=== PATIENT | female | born 1970 | race Two or more races ===

== ENCOUNTER 2020-03-09 09:53 | Day surgery (SDC) | payer OTHER, SELFPAY ==
--- NOTE | 2020-03-08 10:25 | HO.ANESPROP2 ---
Documented by User: Tana Harrison 03/08/20 10:26 HPI - Anesthesia Eval Consult details Narrative: 50yo F for Colonoscopy [facility] Past Medical History Medical History Chronic back pain GERD (gastroesophageal reflux disease) Hypovitaminosis D Insomnia Pure hypercholesterolemia Family History Family History Father Asthma Mother No problems noted. Maternal Grandmother No problems noted. Maternal Grandfather No problems noted. Paternal Grandmother No problems noted. Paternal Grandfather No problems noted. Sister Diabetes Surgical History Surgical History History of surgery History of tubal ligation Social History Social History Smoking Status: Never smoker Use of substances other than those prescribed or required for medical reasons: No Advance Directives: No Advance Directives Information Provided: No Meds Allergies Allergy/AdvReac Type Severity Reaction Status Date / Time No Known Allergies Allergy Verified 03/03/20 13:28 Home Medications Medication Instructions Recorded Confirmed Type omeprazole 20 mg capsule,delayed 20 mg PO QAM 02/08/20 03/03/20 History release Exam Exam Date and Time: March 08, 2020 102 Assessment and Plan Assessment Anesthesia Assessment: Chart Reviewed Documented by User: Hal Andrade 03/09/20 10:48 [facility] Past Medical History Medical History Chronic back pain GERD (gastroesophageal reflux disease) Hypovitaminosis D Insomnia Pure hypercholesterolemia Family History Family History Father Asthma Mother No problems noted. Maternal Grandmother No problems noted. Maternal Grandfather No problems noted. Paternal Grandmother No problems noted. Paternal Grandfather No problems noted. Sister Diabetes Surgical History Surgical History History of surgery History of tubal ligation Social History Social History Smoking Status: Never smoker Use of substances other than those prescribed or required for medical reasons: No Advance Directives: No Advance Directives Information Provided: No Meds Allergies Allergy/AdvReac Type Severity Reaction Status Date / Time No Known Allergies Allergy Verified 03/03/20 13:28 Home Medications Medication Instructions Recorded Confirmed Type omeprazole 20 mg capsule,delayed 20 mg PO QAM 02/08/20 03/03/20 History release Exam Airway Mallampati Class: II TM Dist: >3cm Neck ROM: Full Heart: [id number] Lungs: cta b/l Assessment and Plan Assessment Anesthesia Assessment: Anesthesia Plan Discussed, PAT Visit and Chart Reviewed Final Anesthetic Review NPO: Yes ASA Class: II Final Preanesthetic Review: No Changes in Pt Med Stat, Meds/Allgs Chart Reviewed, Consent Obtained/Reviewed and Anes Risks/Benef Reviewed Patient Risk: Low Procedure Risk: Low Assessment/Block/Sedation in SS: Assess/Block/Sedation-SS Anesthetic Plan Anesthetic Plan: MAC: and Agree w/ Assess. and Plan Disposition: Standard PACU
[2020-03-09 10:29] VITALS: BP 115/71; PULSE 71; RESP 16; TEMP 36.5; O2SAT 97
[2020-03-09 10:33] VITALS: BMI 27.8
[2020-03-09] MEDS: Lactated Ringers 1,000 ML 100 ML IVCONT (10:46)
--- NOTE | 2020-03-09 10:50 | MHC.SHP ---
Pre-Procedural Eval Section B Chief Complaint: Screening Details of Present Illness: colon cancer screening--No changes since preop Relevant Family History (Specify if Yes): No Relevant Social History: None Present Medications: see Short Stay Collaborative assessment Medical History: No relevant PMH History of Previous Operations: No relevant previous surgery Allergies: Allergies Allergy/AdvReac Type Severity Reaction Status Date / Time No Known Allergies Allergy Verified 03/03/20 13:28 Review of Systems Sugical H&P ROS: Negative: Constitution, Cardiovascular, Respiratory, Gastrointestinal and Genitourinary Exam Surgical H&P Exam: Normal: HEENT, Normal: Heart, Normal: Lungs, Normal: Extremities and Normal: Abdomen Plan Diagnosis/Plan: Unchanged I have reviewed the history and physical and performed a pertinent physical examination on my patient. No changes have occurred unless specified.Yes
[2020-03-09 11:26] VITALS: BP 120/69; PULSE 67; RESP 16; TEMP 36.7; O2SAT 100
--- NOTE | 2020-03-09 11:32 | PM.PROC ---
Brief Operative Note Date of procedure: 03/09/20 Pre-op diagnosis: COLON CANCER SCREENING NON HIGH RISK Post-op diagnosis: other (NORMAL EXAM--EXCELLENT PREP) Procedure: COLONOSCOPY Anesthesia: MAC (Patrizia MARCELO CRNA) Surgeon: Delma Carey Estimated blood loss (mL): 0 Pathology: none sent Condition: stable
[2020-03-09 11:40] VITALS: BP 117/66; PULSE 55; RESP 16; TEMP 36.7; O2SAT 98
--- NOTE | 2020-03-09 12:14 | HO.POSTANES ---
Post Anesthesia Evaluation Post Anesthesia Evaluation Vital Signs: Vital Signs Temp Pulse Resp BP Pulse Ox 03/09/20 11:40 98.1 F 55 16 117/66 98 03/09/20 11:26 98.1 F 67 16 120/69 100 03/09/20 10:29 97.7 F 71 16 115/71 97 Anesthesia: Monitored Mental Status: Awake Pain Control: Satisfactory Nausea/Vomiting: None Hydration: Adequate Anesthesia-Related Issues: No Anes. Related Issues
--- NOTE | 2020-03-09 15:49 | OP_ITS ---
SURGEON: Delma Carey MD PREOPERATIVE DIAGNOSIS: The patient is seen for colon cancer screening, non-high risk. POSTOPERATIVE DIAGNOSIS: Normal exam. PROCEDURE PERFORMED: Colonoscopy. ESTIMATED BLOOD LOSS: No blood loss. COMPLICATIONS: No complications. ANESTHESIA: Monitored. ANESTHESIOLOGIST: Patrizia Chaves CRNA ASSISTANTS: No assistant real estate manager. SPECIMENS: No specimens removed. ROADS SUPERINTENDENT: Dr. Carey. CONDITION: Postprocedure, stable. FINDINGS: Digital rectal exam revealed sphincter tone to be adequate. Video colonoscope was introduced without difficulty. It was navigated into the rectosigmoid and sigmoid on up through descending, transverse, ascending colon down into the cecal cap. Appendiceal orifice was seen. Ileocecal valve was well seen. No mucosal abnormalities were appreciated. Prep was excellent. Slow rotational views on withdrawing the scope. No mucosal lesions were seen. Anorectal verge was clear. PLAN AND CURRENT RECOMMENDATIONS: Repeat asymptomatic screening in a non-high risk patient is 10 years. GRAFT OR IMPLANTS: No grafts or implants. Delma Carey MD MEN/MODL / [id number] [facility]
== END 2020-03-09 12:25 | disposition home or self-care (01) ==
PROVIDERS: PCP Internal Medicine; Visit Provider Internal Medicine Gastroenterology
PROC: 0DJD8ZZ Inspection of Lower Intestinal Tract, Via Natural or Artificial Opening Endoscopic (ICD-10-PCS; CPT 45378; principal; 2020-03-09 11:20)
DX: Z12.11 Encounter for screening for malignant neoplasm of colon (principal); K21.9 Gastro-esophageal reflux disease without esophagitis; E55.9 Vitamin D deficiency, unspecified; Z79.899 Other long term (current) drug therapy
CPT/HCPCS: 45378

== ENCOUNTER → 2020-03-23 14:25 | Outpatient (BNVA) | payer OTHER, SELFPAY | PROVIDERS: PCP Internal Medicine; Visit Provider Physician Assistant ==

== ENCOUNTER 2020-04-26 11:57 | Outpatient (REF) | payer OTHER, SELFPAY ==
[2020-04-26 13:02] LABS: Alanine Aminotransferase 17 U/L (0-31); Albumin Level 4.4 g/dL (3.5-5.0); Alkaline Phosphatase 90 U/L (39-117); Anion Gap 12 (12-20); Aspartate Amino Transferase 29 U/L (5-31); Bilirubin Total 0.3 mg/dL (0.0-1.0); Blood Urea Nitrogen 13 mg/dL (9-16); Calcium 9.1 mg/dL (8.4-10.2); Carbon Dioxide 27 mmol/L (22-29); Chloride 104 mmol/L (96-108); Cholesterol 233 mg/dL; Estimated Glomerular Filt Rate > 60; Glucose Fasting 103 mg/dL (60-99); HDL Cholesterol 36 mg/dL; LDL Cholesterol Calculated 128 mg/dl; Sodium 138 mmol/L (135-145); Total Protein 7.5 g/dL (6.5-8.0); Triglycerides 345 mg/dL
[2020-05-01 13:01] LABS: Vitamin D 25-OH, D2 54 ng/mL; Vitamin D 25-OH, D3 10 ng/mL; Vitamin D 25-OH, Total 64 ng/mL (30-100)
== END 2020-04-26 11:58 | disposition home or self-care (01) ==
LOC: HO.LAB 11:57
PROVIDERS: PCP Internal Medicine; Visit Provider Internal Medicine
DX: E78.00 Pure hypercholesterolemia, unspecified (principal); E55.9 Vitamin D deficiency, unspecified; E78.5 Hyperlipidemia, unspecified
CPT/HCPCS: 36415; 80053; 80061; 82306

== ENCOUNTER 2020-06-27 10:05 | Outpatient (REF) | payer OTHER, SELFPAY ==
--- NOTE | ~2020-06-27 | MM_ITS ---
EXAMINATION: MM SCREENING DIGITAL BREAST TOMOSYNTHESIS, BILATERAL CLINICAL INFORMATION: Screening. Asymptomatic. The lifetime risk of breast cancer based on the Tyrer-Cuzick Model is 7%. COMPARISON: Mammography: 02/19/2018, 02/12/2017, 02/07/2016 TECHNIQUE: Digital breast tomosynthesis is performed in both the craniocaudal and mediolateral oblique views along with computer-aided detection (CAD). Synthesized 2D images are generated from the tomosynthesis. FINDINGS: The breasts are heterogeneously dense, which may obscure small masses (ACR BI-RADS breast composition Category c). There are no significant masses, abnormal calcifications, or other abnormalities. There are some minor shifting fibroglandular densities related to positioning from year to year. No developing density. No significant changes. The skin contours are smooth. MM/MM tomosynthesis screening BI IMPRESSION: No mammographic evidence of malignancy. ASSESSMENT: BI-RADS 1: Negative RECOMMENDATION: Routine annual mammography screening. This patient's information was entered into a reminder system with a target due date for their next mammogram.
== END 2020-06-27 10:06 | disposition home or self-care (01) ==
LOC: HO.MAMMO 10:05
PROVIDERS: Visit Provider Internal Medicine
DX: Z12.31 Encounter for screening mammogram for malignant neoplasm of breast (principal)
CPT/HCPCS: 77063; 77067

== ENCOUNTER 2020-10-13 11:01 | Emergency (ER) | payer OTHER, SELFPAY ==
--- NOTE | ~2020-10-13 | CT_ITS ---
EXAMINATION: CT HEAD WITHOUT CONTRAST CLINICAL INFORMATION: Dizziness COMPARISON: None TECHNIQUE: Contiguous axial imaging was performed from the skull base to vertex without intravenous administration of contrast. This CT examination was performed using dose optimization techniques as appropriate, variously including the following: *Automated exposure control *Adjustment of mA and/or kV according to patient size (this includes techniques or standardized protocols for targeted exams where dose is matched to indication/reason for exam; i.e. extremities or head) *Use of iterative reconstruction technique DLP: 600 mGy-cm FINDINGS: There is no evidence of acute intracranial hemorrhage or territorial infarction. No abnormal mass effect or midline shift is seen. Ferro to white matter differentiation is well preserved. No extra-axial fluid collections are identified. The ventricles are normal in size. There is no abnormal attenuation within the brain parenchyma. The osseous structures and soft tissues are normal. The mastoid air cells and visualized portions of the paranasal sinuses are well aerated. CT/CT head/brain wo con IMPRESSION: Unremarkable exam.
[2020-10-13 11:41] VITALS: BP 104/41; PULSE 63; RESP 18; TEMP 37.1; O2SAT 98; BMI 27.6
--- NOTE | 2020-10-13 12:08 | ECG_ITS ---
Test Reason : ABDOMINAL PAIN Blood Pressure : / mmHG Vent. Rate : 066 BPM Atrial Rate : 066 BPM P-R Int : 146 ms QRS Dur : 076 ms QT Int : 420 ms P-R-T Axes : 055 061 024 degrees QTc Int : 440 ms Normal sinus rhythm Normal ECG When compared with ECG of 10-MAY-2017 19:41, No significant change was found Referred By: Joaquin Mares Electronically Signed By:LANEY HAWKINS
--- NOTE | 2020-10-13 12:09 | ED_ITS ---
HPI - General Adult General Chief complaint: Abdominal Pain Stated complaint: Weakness Time Seen by Provider: 10/13/20 13:52 Source: patient Mode of arrival: ambulatory Limitations: no limitations History of Present Illness HPI narrative: Patient presents to the ED for dizziness described as lightheadedness and abdominal cramps, cramps in extremities, and feeling tired. Patient was with her significant other cleaning the yardd and moving leaves with Rakes for over 2 hours under the hot sun this morning. . Patient states all the sudden started having symptoms while raking and came to the ED to be evaluated. Patient only had coffee for breakfast. Patient was not drinking water while perform activity. Patient denies any slurred speech, loss of vision, paralysis of extremities, trouble walking, facial droop, chest pain, shortness of breath, diarrhea, nausea, or emesis, or headache. Patient states no chest pain or shortness of breath. Patient denies any vomiting or diarrhea. Related Data Previous Rx's Medication Instructions Recorded ibuprofen 800 mg tablet 800 mg PO TID #90 tab 02/08/20 cholecalciferol (vitamin D3) 25 25 mcg PO DAILY 90 Days #90 cap 06/14/20 mcg (1,000 unit) capsule clotrimazole-betamethasone 1 1 appl TOPICAL BID 14 Days #15 g 06/14/20 %-0.05 % topical cream omeprazole 40 mg capsule,delayed 40 mg PO DAILY 90 Days #90 cap 06/14/20 release ergocalciferol (vitamin D2) 1,250 1,250 mcg PO QWEEK #4 cap 07/02/20 mcg (50,000 unit) capsule atorvastatin 10 mg tablet 10 mg PO BEDTIME #90 tab 09/06/20 escitalopram oxalate 5 mg tablet 5 mg PO DAILY 30 Days #30 tab 09/17/20 trazodone 50 mg tablet 50 mg PO BEDTIME PRN 90 Days #90 09/25/20 tab cephalexin 500 mg capsule 500 mg PO QID #28 cap 10/13/20 Allergies Allergy/AdvReac Type Severity Reaction Status Date / Time No Known Allergies Allergy Verified 10/13/20 11:41 Review of Systems Review of Systems: Yes all other systems are reviewed and are negative Constitutional: Constitutional: Reports as per HPI and Reports no additional constitutional complaints Eyes: Eyes: Reports as per HPI and Reports no additional eye complaints ENT: Reports system reviewed and no additional complaints, except as documented and Reports as per HPI Cardiovascular: Cardiovascular: Reports as per HPI and Reports no additional cardiovascular complaints Respiratory: Respiratory: Reports as per HPI and Reports no additional respiratory complaints Gastrointestinal: Gastrointestinal: Reports as per HPI, Reports no additional gastrointestinal complaints and Reports GI cramping Genitourinary: Genitourinary: Reports no additional female genitourinary complaints and Reports as per HPI Musculoskeletal: Musculoskeletal: Reports no additional musculoskeletal complaints and Reports as per HPI Integumentary/Breasts: Skin/Breast: Reports system reviewed and no additional complaints, except as docu and Reports as per HPI Neurologic: Reports system reviewed and no additional complaints, except as documented and Reports as per HPI Comments: Lightheadedness Psychiatric: Psychiatric: Reports no additional psychiatric complaints and Reports as per HPI [facility] Past Medical History Medical History Chronic back pain GERD (gastroesophageal reflux disease) Hypovitaminosis D Insomnia Mixed hyperlipidemia Pure hypercholesterolemia Surgical History History of surgery History of tubal ligation Family History Family History Father Asthma Mother No problems noted. Maternal Grandmother No problems noted. Maternal Grandfather No problems noted. Paternal Grandmother No problems noted. Paternal Grandfather No problems noted. Sister Diabetes Social History Social History (Updated 06/14/20 @ 17:18 by Daniella Abraham MD) Household Members: Spouse Alcohol intake: never Advance Directives: No Advance Directives Information Provided: No Patient : No Physical Exam Vital Signs: Vital Signs: Last Vital Signs Temp 98.7 F 10/13/20 11:41 Pulse 62 10/13/20 16:27 Resp 16 10/13/20 14:17 BP 99/51 L 10/13/20 16:27 Pulse Ox 98 10/13/20 14:17 Body Mass Index 27.6 Const: General: cooperative, healthy appearing, comfortable, no acute distress, well developed, alert, awake and Physically active Orien tation/consciousness: patient oriented x3 HENMT: Head: Yes normal to inspection, Yes No palpable skull fracture present, Yes normocephalic, Yes atraumatic and No abrasion Eyes: General: appearance normal, both eyes and all related structures Neck: Neck: Yes normal visual inspection, Yes full ROM, Yes no lymphadenopathy, Yes no meningeal signs, Yes trachea midline, Yes supple and No tender Chest: Chest palpation & inspection: normal inspection of the chest and normal palpation of entire chest wall Resp: Effort & Inspection: normal respiratory effort and able to speak in complete sentences Auscultation: clear to auscultation bilaterally Cardio: Jugular venous distension: no JVD Heart sounds: S1 normal heart sound present and S2 normal heart sound present GI: Inspection: Yes normal to inspection and No abdominal wall ecchymosis Palpation (GI): Soft to palpation, not firm, nontender, no guarding and not rigid : General: No CVA tenderness and Yes no CVA tenderness Back/Spine/Pelvis: Back: no CVA tenderness, No CVA tenderness and No back tenderness Skin: General skin exam: no rashes or lesions noted and elasticity normal Neuro: Other: Negative facial droop. Negative slurred speech. All extremities equal strength 5+. Negative pronator drift. [id number] rapid hand movement intact. Negative Romberg General: patient oriented x3, no meningeal signs and CN's II-XI intact bilaterally Cranial nerves: Yes CN's II-XII intact bilaterally Extrem: General: Yes normal to inspection and Yes full ROM Psych: Appearance: grossly normal, well kempt and not disheveled NIH Stroke Scale Level of Consciousness: Alert Level of Consciousness Questions: Answers both questions correctly Level of Consciousness Commands: Performs both tasks correctly Best Gaze: Normal Visual: No visual loss Facial Palsy: Normal Motor Arm (Right): No drift Motor Arm (Left): No drift Motor Leg (Right): No drift Motor Leg (Left): No drift Limb Ataxia: Absent Sensory: Normal Best Language: No aphasia Dysarthia: Normal Extinction and Inattention: No abnormality Score: 0 Course Course Course Narrative: History physical exam indicates his exertion but with a cardiac evaluation. NIH score 0 unlikely stroke but was sent for head CT CPK an d troponin ordered. Reevaluation(s) Reevaluation #1: Patient initial troponin came back at 8.4. CT scan normal. Negative for neuro deficits. EKG negative STEMI. CPK only 300. Electrolytes are at baseline. Patient receiving IV fluids. Time: 12:19 Reevaluation #2: D-dimer was sent due to patient stating earlier while in the sun she felt dizzy, cramping in extremities, bilateral upper quadrants and felt like she is about to pass out in the sun. D-dimer negative. Wells score is 0. Patient states she feels better after IV fluids. and no longer have any cramping in the abdomen or cramping of extremities. Diagnosis heat exaustion. Exam benign, soft, and nontender on palpation. UA shows UTI. Will be discharged with antibiotics. We will do orthostatics. Second troponin did not increased by 50%. Time: 16:19 Medical Decision Making MDM Narrative Medical decision making narrative: UTI. Heat exhaustion Lab Data Result diagrams: 10/13/20 12:19 10/13/20 12:19 Labs: Lab Results 10/13/20 10/13/20 10/13/20 Range/Units 12:19 12:19 12:19 WBC 11.2 H (4.8-10.8) X10*3/uL RBC 4.56 (4.20-5.50) X10*6/uL Hgb 12.7 (12.0-16.0) g/dl Hct 40.1 (37-47) % MCV 87.9 (80-98) fL MCH 27.9 (27.0-33.0) pg MCHC 31.7 (31.0-35.0) g/dl RDW 13.7 (11.0-16.0) % Plt Count 410 H (160-400) X10*3/uL MPV 9.6 (9.4-12.3) fL Immature Gran % (Auto) 0.4 (0.0-0.4) % Neut % (Auto) 58.0 (45-73) % Lymph % (Auto) 33.6 (20-40) % [place] % (Auto) 6.6 (2-11) % Eos % (Auto) 0.9 (0-4) % Baso % (Auto) 0.5 (0-2) % Lymph # (Auto) 3.8 (1.2-4.9) X10*3/uL [place] # (Auto) 0.7 (0.1-1.2) X10*3/uL Eos # (Auto) 0.1 (0.0-0.4) X10*3/uL Baso # (Auto) 0.1 (0.0-0.2) X10*3/uL Abs Immat Gran (auto) 0.04 H (0.00-0.03) X10*3/uL Absolute Neuts (auto) 6.5 (2.0-8.3) X10*3/uL Absolute Nucleated RBC 0.000 (0.0-0.012) X10*3/uL Nucleated RBC % (auto) 0.0 (0.0-0.2) /100WBC PT 11.5 (9.9-13.0) SEC INR 1.0 (0.9-1.1) APTT 36.4 (24.1-38.0) SEC D-Dimer < 200 NG/ML Sodium 139 (135-145) mmol/L Potassium 4.1 (3.3-5.1) mmol/L Chloride 103 (96-108) mmol/L Carbon Dioxide 28 (22-29) mmol/L Anion Gap 12 (12-20) BUN 18 H (9-16) mg/dL Creatinine 1.20 (0.5-1.4) mg/dL Estim Creat Clear Calc 52.3 Estimated GFR 47 Random Glucose 85 (60-115) mg/dL Calcium 10.3 H D (8.4-10.2) mg/dL Magnesium 2.5 (1.6-2.6) mg/dL Total Bilirubin 0.5 (0.0-1.0) mg/dL Direct Bilirubin (0.0-0.5) mg/dL AST 44 H D (5-31) U/L ALT 24 (0-31) U/L Alkaline Phosphatase 102 (39-117) U/L Total Creatine Kinase 319 H (26-140) U/L Troponin I High Sens (<3.5-17.0) ng/L Total Protein 8.0 (6.5-8.0) g/dL Albumin 4.7 (3.5-5.0) g/dL Lipase (8-78) U/L Urine Color Urine Appearance Urine pH (5.0-8.0) Ur Specific [place] (1.005-1.025) Urine Protein (NEG-TRACE) MG/DL Urine Glucose (UA) (NEG) MG/DL Urine Ketones (NEG) MG/DL Urine Blood (NEG) Urine Nitrite (NEG) Ur Leukocyte Esterase (NEG) Urine RBC (0) /HPF Urine WBC (0-4) /HPF Ur Squamous Epith Cells /LPF Urine Bacteria /LPF Urine Mucus /LPF Urine Test (NEGATIVE) 10/13/20 10/13/20 10/13/20 Range/Units 12:19 12:19 12:21 WBC (4.8-10.8) X10*3/uL RBC (4.20-5.50) X10*6/uL Hgb (12.0-16.0) g/dl Hct (37-47) % MCV (80-98) fL MCH (27.0-33.0) pg MCHC (31.0-35.0) g/dl RDW (11.0-16.0) % Plt Count (160-400) X10*3/uL MPV (9.4-12.3) fL Immature Gran % (Auto) (0.0-0.4) % Neut % (Auto) (45-73) % Lymph % (Auto) (20-40) % [place] % (Auto) (2-11) % Eos % (Auto) (0-4) % Baso % (Auto) (0-2) % Lymph # (Auto) (1.2-4.9) X10*3/uL [place] # (Auto) (0.1-1.2) X10*3/uL Eos # (Auto) (0.0-0.4) X10*3/uL Baso # (Auto) (0.0-0.2) X10*3/uL Abs Immat Gran (auto) (0.00-0.03) X10*3/uL Absolute Neuts (auto) (2.0-8.3) X10*3/uL Absolute Nucleated RBC (0.0-0.012) X10*3/uL Nucleated RBC % (auto) (0.0-0.2) /100WBC PT (9.9-13.0) SEC INR (0.9-1.1) APTT (24.1-38.0) SEC D-Dimer NG/ML Sodium (135-145) mmol/L Potassium (3.3-5.1) mmol/L Chloride (96-108) mmol/L Carbon Dioxide (22-29) mmol/L Anion Gap (12-20) BUN (9-16) mg/dL Creatinine (0.5-1.4) mg/dL Estim Creat Clear Calc Estimated GFR Random Glucose (60-115) mg/dL Calcium (8.4-10.2) mg/dL Magnesium (1.6-2.6) mg/dL Total Bilirubin 0.5 (0.0-1.0) mg/dL Direct Bilirubin 0.2 (0.0-0.5) mg/dL AST 44 H (5-31) U/L ALT 24 (0-31) U/L Alkaline Phosphatase 102 (39-117) U/L Total Creatine Kinase (26-140) U/L Troponin I High Sens 8.4 (<3.5-17.0) ng/L Total Protein 8.0 (6.5-8.0) g/dL Albumin 4.7 (3.5-5.0) g/dL Lipase 21 (8-78) U/L Urine Color YELLOW Urine Appearance HAZY Urine pH 5.5 (5.0-8.0) Ur Specific [place] 1.025 (1.005-1.025) Urine Protein TRACE (NEG-TRACE) MG/DL Urine Glucose (UA) NEG (NEG) MG/DL Urine Ketones 5 (NEG) MG/DL Urine Blood TRACE (NEG) Urine Nitrite NEG (NEG) Ur Leukocyte Esterase 2+ H (NEG) Urine RBC 0-2 (0) /HPF Urine WBC 15-29 H (0-4) /HPF Ur Squamous Epith Cells 3+ /LPF Urine Bacteria 1+ /LPF Urine Mucus 1+ /LPF Urine Test (NEGATIVE) 10/13/20 10/13/20 Range/Units 12:21 15:26 WBC (4.8-10.8) X10*3/uL RBC (4.20-5.50) X10*6/uL Hgb (12.0-16.0) g/dl Hct (37-47) % MCV (80-98) fL MCH (27.0-33.0) pg MCHC (31.0-35.0) g/dl RDW (11.0-16.0) % Plt Count (160-400) X10*3/uL MPV (9.4-12.3) fL Immature Gran % (Auto) (0.0-0.4) % Neut % (Auto) (45-73) % Lymph % (Auto) (20-40) % [place] % (Auto) (2-11) % Eos % (Auto) (0-4) % Baso % (Auto) (0-2) % Lymph # (Auto) (1.2-4.9) X10*3/uL [place] # (Auto) (0.1-1.2) X10*3/uL Eos # (Auto) (0.0-0.4) X10*3/uL Baso # (Auto) (0.0-0.2) X10*3/uL Abs Immat Gran (auto) (0.00-0.03) X10*3/uL Absolute Neuts (auto) (2.0-8.3) X10*3/uL Absolute Nucleated RBC (0.0-0.012) X10*3/uL Nucleated RBC % (auto) (0.0-0.2) /100WBC PT (9.9-13.0) SEC INR (0.9-1.1) APTT (24.1-38.0) SEC D-Dimer NG/ML Sodium (135-145) mmol/L Potassium (3.3-5.1) mmol/L Chloride (96-108) mmol/L Carbon Dioxide (22-29) mmol/L Anion Gap (12-20) BUN (9-16) mg/dL Creatinine (0.5-1.4) mg/dL Estim Creat Clear Calc Estimated GFR Random Glucose (60-115) mg/dL Calcium (8.4-10.2) mg/dL Magnesium (1.6-2.6) mg/dL Total Bilirubin (0.0-1.0) mg/dL Direct Bilirubin (0.0-0.5) mg/dL AST (5-31) U/L ALT (0-31) U/L Alkaline Phosphatase (39-117) U/L Total Creatine Kinase (26-140) U/L Troponin I High Sens 7.4 (<3.5-17.0) ng/L Total Protein (6.5-8.0) g/dL Albumin (3.5-5.0) g/dL Lipase (8-78) U/L Urine Color Urine Appearance Urine pH (5.0-8.0) Ur Specific [place] (1.005-1.025) Urine Protein (NEG-TRACE) MG/DL Urine Glucose (UA) (NEG) MG/DL Urine Ketones (NEG) MG/DL Urine Blood (NEG) Urine Nitrite (NEG) Ur Leukocyte Esterase (NEG) Urine RBC (0) /HPF Urine WBC (0-4) /HPF Ur Squamous Epith Cells /LPF Urine Bacteria /LPF Urine Mucus /LPF Urine Test NEGATIVE (NEGATIVE) ECG Data Interpretation: Normal sinus rhythm. Normal EKG. Ventricular rate 66. CT interval 146. QRS is 76. QTC 440. Negative STEMI Discharge Plan Discharge Clinical Impression: Heat exhaustion Patient Disposition: Home, Self-Care Instructions: Urinary Tract Infection in Women (ED), Heat Exhaustion (ED) Additional Instructions: La historia y el examen f?sico indican agotamiento por calor. Thurman electrocardiograma, an?lisis de rubens y tomograf?a computarizada de la mary resultaron normales seg?n la orina que muestra la posibilidad de mindi infecci?n del tracto urinario. Ser? dado de christen con antibi?ticos. Regrese al servicio de urgencias de inmediato si tiene dificultad para hablar, declive facial, p?rdida de la visi?n, par?lisis de las extremidades, dolor en el pecho, dificultad para respirar, dolor abdominal, diarrea, n?useas, v?mitos o cualquier otro s?ntoma relacionado. Prescriptions: New cephalexin 500 mg capsule 500 mg PO QID Qty: 28 RF: 0 No Action ergocalciferol (vitamin D2) 1,250 mcg (50,000 unit) capsule 1,250 mcg PO QWEEK Qty: 4 RF: 4 atorvastatin 10 mg tablet 10 mg PO BEDTIME Qty: 90 RF: 1 escitalopram oxalate 5 mg tablet 5 mg PO DAILY 30 Days Qty: 30 RF: 6 trazodone 50 mg tablet 50 mg PO BEDTIME PRN (Reason: insomnia) 90 Days Qty: 90 RF: 3 omeprazole 40 mg capsule,delayed release(DR/EC) 40 mg PO DAILY 90 Days Qty: 90 RF: 3 cholecalciferol (vitamin D3) 25 mcg (1,000 unit) capsule 25 mcg PO DAILY 90 Days Qty: 90 RF: 3 clotrimazole-betamethasone 1-0.05 % cream 1 appl topical BID 14 Days Qty: 15 RF: 1 ibuprofen 800 mg tablet 800 mg PO TID Qty: 90 RF: 3 Referrals: Daniella Leo MD [Primary Care Provider] - 2 days (Heat exhaustion. UTI) Interventions: ED Discharge Assessment Last Done: 10/13/20 16:45 Discharge Date/Time: 10/13/20 16:45 Print Language: Citizen Of [place]
[2020-10-13] MEDS: 0.9 % Sodium Chloride 1,000 ML 999 ML IV ×2 (12:20)
[2020-10-13 12:25] VITALS: BP 98/59; PULSE 50; RESP 16; O2SAT 98
[2020-10-13 12:31] LABS: MANUAL DIFF FLAG NO
[2020-10-13 12:32] LABS: Basophils Absolute Auto 0.1 X10*3/uL (0.0-0.2); Basophils Percent Auto 0.5 % (0-2); Eosinophils Absolute Auto 0.1 X10*3/uL (0.0-0.4); Eosinophils Percent Auto 0.9 % (0-4); Hematocrit 40.1 % (37-47); Hemoglobin 12.7 g/dl (12.0-16.0); Imm Gran Abs Auto 0.04 X10*3/uL (0.00-0.03); Imm Gran Pct Auto 0.4 % (0.0-0.4); Lymphocytes Absolute Auto 3.8 X10*3/uL (1.2-4.9); Lymphocytes Percent Auto 33.6 % (20-40); Mean Corpuscular HGB Conc 31.7 g/dl (31.0-35.0); Mean Corpuscular Hemoglobin 27.9 pg (27.0-33.0); Mean Corpuscular Volume 87.9 fL (80-98); Mean Platelet Volume 9.6 fL (9.4-12.3); Monocytes Absolute Auto 0.7 X10*3/uL (0.1-1.2); Monocytes Percent Auto 6.6 % (2-11); Neutrophils Absolute Auto 6.5 X10*3/uL (2.0-8.3); Platelet Count 410 X10*3/uL (160-400); Red Blood Count 4.56 X10*6/uL (4.20-5.50); Red Cell Distribution Width 13.7 % (11.0-16.0); White Blood Count 11.2 X10*3/uL (4.8-10.8)
[2020-10-13 12:39] LABS: Appearance Urine HAZY; Color Urine YELLOW; Glucose Urine UA NEG (NEG); Leukocyte Esterase Urine 2+ (NEG); Nitrite Urine NEG (NEG); PH 5.5 (5.0-8.0); Specific Gravity - Urine 1.025 (1.005-1.025); UACC Culture Trigger YES; Urine Blood TRACE (NEG); Urine Ketones 5 MG/DL (NEG); Urine Protein TRACE MG/DL (NEG-TRACE)
[2020-10-13 12:39] LABS: Prothrombin Time 11.5 SEC (9.9-13.0)
[2020-10-13 12:42] LABS: Partial Thromboplastin Time 36.4 SEC (24.1-38.0)
[2020-10-13 12:58] LABS: Alanine Aminotransferase 24 U/L (0-31); Albumin Level 4.7 g/dL (3.5-5.0); Alkaline Phosphatase 102 U/L (39-117); Aspartate Amino Transferase 44 U/L (5-31); Bilirubin Direct 0.2 mg/dL (0.0-0.5); Bilirubin Total 0.5 mg/dL (0.0-1.0); Lipase 21 U/L (8-78)
[2020-10-13 12:59] LABS: Alanine Aminotransferase 24 U/L (0-31); Albumin Level 4.7 g/dL (3.5-5.0); Alkaline Phosphatase 102 U/L (39-117); Anion Gap 12 (12-20); Aspartate Amino Transferase 44 U/L (5-31); Bilirubin Total 0.5 mg/dL (0.0-1.0); Blood Urea Nitrogen 18 mg/dL (9-16); Calcium 10.3 mg/dL (8.4-10.2); Carbon Dioxide 28 mmol/L (22-29); Chloride 103 mmol/L (96-108); Creatinine Clr Calc Pharmacy 52.3; Estimated Glomerular Filt Rate 47; Glucose Random 85 mg/dL (60-115); Magnesium 2.5 mg/dL (1.6-2.6); Potassium 4.1 mmol/L (3.3-5.1); Sodium 139 mmol/L (135-145)
[2020-10-13 13:04] LABS: Bacteria Urine 1+ /LPF; Squamous Epithelial Cell Urine 3+ /LPF
[2020-10-13 13:05] LABS: Troponin-I High Sensitivity 8.4 ng/L (<3.5-17.0)
[2020-10-13 13:05] LABS: Mucus Urine 1+ /LPF
[2020-10-13 13:06] LABS: RBC Urine 0-2 /HPF (0)
[2020-10-13 14:16] LABS: Urine Pregnancy NEGATIVE (NEGATIVE)
[2020-10-13 14:17] VITALS: BP 107/55; PULSE 59; RESP 16; O2SAT 98
[2020-10-13 14:17] LABS: UPreg QC Valid YES
[2020-10-13 15:13] LABS: D Dimer < 200 NG/ML
[2020-10-13 15:55] LABS: Troponin-I High Sensitivity 7.4 ng/L (<3.5-17.0)
[2020-10-13 16:25] VITALS: BP 94/53; PULSE 50
[2020-10-13 16:26] VITALS: BP 88/52; PULSE 61
[2020-10-13 16:27] VITALS: BP 99/51; PULSE 62
--- NOTE | 2020-10-13 16:28 | ECG_ITS ---
Test Reason : ABDOMINAL PAIN Blood Pressure : / mmHG Vent. Rate : 066 BPM Atrial Rate : 066 BPM P-R Int : 146 ms QRS Dur : 076 ms QT Int : 420 ms P-R-T Axes : 055 061 024 degrees QTc Int : 440 ms Normal sinus rhythm Normal ECG Referred By: Joaquin Mares Electronically Signed By:
== END 2020-10-13 16:45 | disposition home or self-care (01) ==
PROVIDERS: Physician Assistant; Emergency Provider Emergency Medicine; PCP Internal Medicine
DX: T67.5XXA Heat exhaustion, unspecified, initial encounter (principal); X58.XXXA Exposure to other specified factors, initial encounter; Y93.H1 Activity, digging, shoveling and raking; Y92.017 Garden or yard in single-family (private) house as the place of occurrence of the external cause; Y99.9 Unspecified external cause status
CPT/HCPCS: 36415; 70450; 80053; 80076; 81001; 81025; 82248; 82550; 83690; 83735; 84484; 85025; 85379; 85610; 85730; 87086; 93005; 96360; 99284

== ENCOUNTER 2021-06-01 10:59 | Outpatient (REF) | payer OTHER, SELFPAY ==
[2021-06-01 12:11] LABS: Alanine Aminotransferase 18 U/L (0-31); Albumin Level 4.2 g/dL (3.5-5.0); Alkaline Phosphatase 112 U/L (39-117); Anion Gap 10 (12-20); Aspartate Amino Transferase 35 U/L (5-31); Bilirubin Total 0.7 mg/dL (0.0-1.0); Blood Urea Nitrogen 13 mg/dL (9-16); Calcium 9.9 mg/dL (8.4-10.2); Carbon Dioxide 28 mmol/L (22-29); Chloride 107 mmol/L (96-108); Cholesterol 142 mg/dL; Estimated Glomerular Filt Rate > 60; Glucose Fasting 104 mg/dL (60-99); HDL Cholesterol 44 mg/dL; LDL Cholesterol Calculated 76 mg/dl; Potassium 5.4 mmol/L (3.3-5.1); Sodium 140 mmol/L (135-145); Total Protein 7.4 g/dL (6.5-8.0); Triglycerides 110 mg/dL
== END 2021-06-01 11:00 | disposition home or self-care (01) ==
LOC: HO.LAB 10:59
PROVIDERS: PCP Internal Medicine; Visit Provider Internal Medicine
DX: E78.2 Mixed hyperlipidemia (principal)
CPT/HCPCS: 36415; 80053; 80061

== ENCOUNTER 2021-06-09 08:55 | Outpatient (REF) | payer OTHER, SELFPAY ==
[2021-06-09 09:47] LABS: Alanine Aminotransferase 13 U/L (0-31); Alkaline Phosphatase 104 U/L (39-117); Anion Gap 10 (12-20); Aspartate Amino Transferase 28 U/L (5-31); Bilirubin Total 0.6 mg/dL (0.0-1.0); Blood Urea Nitrogen 11 mg/dL (9-16); Calcium 9.4 mg/dL (8.4-10.2); Carbon Dioxide 27 mmol/L (22-29); Chloride 105 mmol/L (96-108); Estimated Glomerular Filt Rate > 60; Glucose Random 175 mg/dL (60-115); Potassium 4.8 mmol/L (3.3-5.1); Sodium 137 mmol/L (135-145); Total Protein 6.9 g/dL (6.5-8.0)
== END 2021-06-09 08:56 | disposition home or self-care (01) ==
LOC: HO.LAB 08:55
PROVIDERS: PCP Internal Medicine; Visit Provider Internal Medicine
DX: E87.5 Hyperkalemia (principal)
CPT/HCPCS: 36415; 80053

== ENCOUNTER → 2021-06-13 15:22 | Outpatient (REF) | payer OTHER, SELFPAY ==
--- NOTE | 2021-06-13 15:36 | ECG_ITS ---
Test Reason : HYPERKALEMIA Blood Pressure : / mmHG Vent. Rate : 075 BPM Atrial Rate : 075 BPM P-R Int : 174 ms QRS Dur : 076 ms QT Int : 388 ms P-R-T Axes : 074 049 032 degrees QTc Int : 433 ms Normal sinus rhythm Normal ECG When compared with ECG of 13-OCT-2020 13:48, No significant change was found Referred By: Daniella Abraham Electronically Signed By:NELL HESTER
== END ==
LOC: HO.CARD 15:22
PROVIDERS: PCP Internal Medicine; Visit Provider Internal Medicine
DX: E87.5 Hyperkalemia (principal)
CPT/HCPCS: 93005

== ENCOUNTER 2022-03-13 07:20 | Outpatient (REF) | payer OTHER, SELFPAY ==
--- NOTE | ~2022-03-13 | XR_ITS ---
EXAMINATION: XR FOREARM, LEFT CLINICAL INFORMATION: Pain in the left forearm. COMPARISON: No similar priors. TECHNIQUE: AP and lateral views of the left forearm were obtained. FINDINGS: The bones and soft tissues are normal. No fracture. Imaged portions of the elbow and wrist are unremarkable. XR/XR forearm LT 2V IMPRESSION: Normal left forearm.
[2022-03-13 09:14] LABS: Alanine Aminotransferase 14 U/L (0-31); Albumin Level 4.3 g/dL (3.5-5.0); Alkaline Phosphatase 115 U/L (39-117); Anion Gap 13 (12-20); Aspartate Amino Transferase 35 U/L (5-31); Bilirubin Total 0.5 mg/dL (0.0-1.0); Blood Urea Nitrogen 11 mg/dL (9-16); Calcium 9.6 mg/dL (8.4-10.2); Carbon Dioxide 29 mmol/L (22-29); Chloride 104 mmol/L (96-108); Cholesterol 197 mg/dL; Estimated Glomerular Filt Rate > 60; Glucose Fasting 107 mg/dL (60-99); HDL Cholesterol 45 mg/dL; LDL Cholesterol Calculated 125 mg/dl; Sodium 141 mmol/L (135-145); Total Protein 7.5 g/dL (6.5-8.0); Triglycerides 138 mg/dL
[2022-03-13 09:35] LABS: Vitamin D 25-OH Total 25.6 ng/mL (>30)
== END 2022-03-13 07:21 | disposition home or self-care (01) ==
LOC: HO.XRAY 07:20
PROVIDERS: PCP Internal Medicine; Visit Provider Internal Medicine
DX: E55.9 Vitamin D deficiency, unspecified (principal); G89.29 Other chronic pain; E78.5 Hyperlipidemia, unspecified; M79.632 Pain in left forearm; M54.50 Low back pain, unspecified
CPT/HCPCS: 36415; 73090; 80053; 80061; 82306

== ENCOUNTER 2023-03-27 13:07 | Outpatient (REF) | payer OTHER, SELFPAY ==
[2023-03-31 20:09] LABS: HPV mRNA E6/E7 rflx Not Detected (Not Detected)
== END 2023-03-27 13:08 | disposition home or self-care (01) ==
LOC: HO.LNP 13:07
PROVIDERS: Visit Provider Advanced Practice Midwife
DX: Z01.419 Encounter for gynecological examination (general) (routine) without abnormal findings (principal); Z11.51 Encounter for screening for human papillomavirus (HPV); N89.8 Other specified noninflammatory disorders of vagina; N39.46 Mixed incontinence
CPT/HCPCS: 87624; 88142; 99386

== ENCOUNTER 2023-03-27 13:07 | Outpatient (AMB) | payer OTHER, SELFPAY ==
[2023-03-27 13:19] VITALS: BP 124/82; BMI 26.9
--- NOTE | 2023-03-27 13:19 | MHC.OFFVIS ---
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 She is doing well with no concerns: LMP >2 years ago. She reports hot flashes are bothersome. Attempting to eat a healthy diet with calcium and vitamin D and stays active with exercise. Currently not sexually active for 3 years. Denies any vaginal dryness or irritation. STI testing offered; she accepts. Last pap smear; >5yrs. Last mammogram; 2020. Colonoscopy is UTD. Denies any family history of breast, ovarian or colon cancer. [facility] Medical History Left forearm pain Encounter for physical examination Hyperkalemia EDWAR (generalized anxiety disorder) Mild recurrent major depression Screen for STD (sexually transmitted disease) Mixed hyperlipidemia Chronic back pain GERD (gastroesophageal reflux disease) Insomnia Pure hypercholesterolemia Hypovitaminosis D Surgical History History of surgery History of tubal ligation Family History Father Asthma Mother No problems noted. Maternal Grandmother No problems noted. Maternal Grandfather No problems noted. Paternal Grandmother No problems noted. Paternal Grandfather No problems noted. Sister Diabetes Social History Household Members: Spouse Housing: Apartment Alcohol intake: never Patient Tobacco Use Status: Never used Tobacco e-Cigarette/Vaping Use: Never Used Second Hand Smoke Exposure: No service: No Current occupational status: employed Current occupational exposures/hazards: No Cognitive needs: No Hearing needs: No Vision needs: No Female Reproductive History Menstrual Age of Menarche: 12 control method: permanent sterilization Total pregnancies: 3 Full term: 3 Number of Living Children: 3 Date of last pap smear: 04/21/17 (negative) Date of Mammogram: 06/27/20 Review of Systems Const All systems reviewed & are unremarkable except as noted in HPI and below Reports as per HPI Eyes Reports no additional complaints ENT Reports no additional complaints Card Reports no additional complaints Resp Reports no additional complaints GI Reports as per HPI and Reports no additional complaints Reports as per HPI Musc Reports no additional complaints Skin/Breast Reports as per HPI Neuro Reports no additional complaints Psych Reports no additional complaints Endo Reports no additional complaints Edmund/Lymph Reports no additional complaints Aller/Immun Reports no additional complaints Physical Exam Vital Signs: Last Vital Signs BP 124/82 03/27/23 13:19 BMI result Body Mass Index 26.9 Const General: cooperative, healthy appearing, no acute distress, well developed and alert Orientation/consciousness: patient oriented x3 HEENT Head: Yes normal to inspection Eyes General: appearance normal, both eyes and all related structures Neck Neck: Yes normal visual inspection Thyroid: Thyroid normal Chest Chest palpation & inspection: normal inspection of the chest and other (no puckering, dimpling, peau de orange, retraction, discharge, masses) Breast/axilla inspection: normal inspection of the breasts Breast/axilla palpation: normal palpation of the breasts Resp Effort & Inspection: normal respiratory effort GI Inspection: Yes normal to inspection Palpation (GI): Soft to palpation Rectal Exam - Female: deferred General: Yes bladder normal to palpation External Female Exam: normal external appearance and normal appearance of the urethra Speculum Exam - Vagina: normal appearance of the vagina, normal palpation, abnormal vaginal discharge (White and clumpy) and vagina atrophic Speculum Exam - Cervix: normal appearance of the cervix and normal palpation Bimanual exam- vagina & uterus: normal bimanual exam, normal palpation, uterine size normal, bladder normal to palpation, normal palpation and non-tender Bimanual Exam- Adnexa, other: no masses Skin General skin exam: no rashes or lesions noted Rashes: no rashes Neuro General: patient oriented x3 Cognition (Neuro): normal cognition Extrem General: Yes normal to inspection Psych Attitude: cooperative Thought process: Normal thought process present Assessment & Plan Assessment & Plan (1) Encounter for well woman exam with routine gynecological exam: Code(s): Z01.419 - Encounter for gynecological examination (general) (routine) without abnormal findings (2) Urge and stress incontinence: Code(s): N39.46 - Mixed incontinence (3) Vaginal discharge: Code(s): N89.8 - Other specified noninflammatory disorders of vagina Plan Discussed: Current recommendations for pap smears per ASCCP guidelines. Breast awareness, periodic self breast exams and yearly mammogram. Maintain a healthy lifestyle, well balanced diet including Calcium 1,200 mg and Vitamin D 600 IU daily, and routine exercise. Use of condoms for STI if indicated. Contact the office with any postmenopausal bleeding. Complete the mammogram and then schedule a consult for hot flashes. Referral to Urology. Patient verbalizes understanding and agrees to the plan of care. She was given opportunity to ask questions and all questions were answered to the best of my ability. 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 This note is constructed using voice recognition software. While every effort has been made to ensure accuracy, urban renewal manager errors may have been included. Orders: Orders MM tomosynthesis screening BI Today Z12.31 - Encounter for screening mammogram for malignant neoplasm of breast HIV Ab/Ag Today Z20.2 - Contact with and (suspected) exposure to infections with a predominantly sexual mode of transmission Pap Smear Today Z01.419 - Encounter for gynecological examination (general) (routine) without abnormal findings Hepatitis C Antibody Reflex Today Z20.2 - Contact with and (suspected) exposure to infections with a predominantly sexual mode of transmission Hepatitis B Core Antibody Today Z20.2 - Contact with and (suspected) exposure to infections with a predominantly sexual mode of transmission Syphilis Screen Today Z20.2 - Contact with and (suspected) exposure to infections with a predominantly sexual mode of transmission Bacterial Vaginosis Panel Today N89.8 - Other specified noninflammatory disorders of vagina CT NG by PCR Today N89.8 - Other specified noninflammatory disorders of vagina Referrals Urology Referral N39.46 - Mixed incontinence Coding Level of Care Code New Pt Prev Care 40-64y(56741) Diagnoses Encounter for well woman exam with routine gynecological exam Z01.419 Urge and stress incontinence N39.46 Vaginal discharge N89.8
== END 2023-03-27 14:09 | disposition home or self-care (01) ==
PROVIDERS: Visit Provider Advanced Practice Midwife
DX: Z01.419 Encounter for gynecological examination (general) (routine) without abnormal findings (principal); N39.46 Mixed incontinence; N89.8 Other specified noninflammatory disorders of vagina
CPT/HCPCS: 99386

== ENCOUNTER 2023-03-27 14:15 | Outpatient (REF) | payer OTHER, SELFPAY ==
[2023-03-27 17:16] LABS: CT PCR NOT DETECTED (Not Detect.); NG PCR NOT DETECTED (Not Detect.)
[2023-03-28 08:41] LABS: BV Int Neg Control Negative (Negative); BV Int Pos Control Positive (Positive)
== END 2023-03-27 14:16 | disposition home or self-care (01) ==
LOC: HO.LAB 14:15
PROVIDERS: Visit Provider Advanced Practice Midwife
DX: N89.8 Other specified noninflammatory disorders of vagina (principal)
CPT/HCPCS: 0353U; 87480; 87510; 87660

== ENCOUNTER 2023-03-27 14:20 | Outpatient (REF) | payer OTHER, SELFPAY ==
[2023-03-27 16:21] LABS: Vitamin D 25-OH Total 19.8 ng/mL (>30)
[2023-03-28 08:16] LABS: HBc Num1 0.28 S/CO (0.00-0.79); HIV AB/AG Nonreactive (Nonreactive); HIV Num 1 0.18 S/CO (0.00-0.99); Hepatitis B Core Antibody Nonreactive (Nonreactive); Syphilis Screen Reactive (Nonreactive); ~HepC Num1 0.21 S/CO (0.00-0.79); ~Hepatitis C Antibody Nonreactive (Nonreactive)
[2023-04-06 11:11] LABS: RPR Quantitative Non-Reactive (Nonreactive); T.Pallidum Particle Agg Test Non-Reactive (Nonreactive)
== END 2023-03-27 14:21 | disposition home or self-care (01) ==
LOC: HO.LAB 14:20
PROVIDERS: Advanced Practice Midwife; PCP Internal Medicine; Visit Provider Internal Medicine
DX: Z11.4 Encounter for screening for human immunodeficiency virus [HIV] (principal); Z20.2 Contact with and (suspected) exposure to infections with a predominantly sexual mode of transmission; E55.9 Vitamin D deficiency, unspecified
CPT/HCPCS: 36415; 82306; 86592; 86704; 86780; 86803; 87389

== ENCOUNTER 2023-04-10 10:55 | Outpatient (REF) | payer OTHER, SELFPAY | END 2023-04-10 10:56 | disposition home or self-care (01) | LOC: HO.MAMMO 10:55 | PROVIDERS: PCP Internal Medicine; Visit Provider Advanced Practice Midwife | DX: Z12.31 Encounter for screening mammogram for malignant neoplasm of breast (principal) | CPT/HCPCS: 77063; 77067 ==

== ENCOUNTER → 2023-04-10 11:15 | Outpatient (BNV) | payer OTHER, SELFPAY | PROVIDERS: PCP Internal Medicine; Visit Provider Radiology Diagnostic Radiology | DX: Z12.31 Encounter for screening mammogram for malignant neoplasm of breast (principal) | CPT/HCPCS: 77063; 77067 ==

== ENCOUNTER 2023-05-15 08:46 | Outpatient (REF) | payer OTHER, SELFPAY | END 2023-05-15 08:47 | disposition home or self-care (01) | LOC: HO.LAB 08:46 | PROVIDERS: PCP Internal Medicine; Visit Provider Advanced Practice Midwife | DX: R23.2 Flushing (principal) | CPT/HCPCS: 36415; 84443; 99212 ==

== ENCOUNTER 2023-05-15 08:46 | Outpatient (AMB) | payer OTHER, SELFPAY ==
--- NOTE | 2023-05-15 08:50 | MHC.OFFVIS ---
Intake Vital Signs 05/15/23 08:51 Height 5 ft 3 in Weight 152 lb BMI 26.9 BP 120/80 Intake Visit Reasons: Hot flashes/Sales Manager Required: Yes Textile Finisher Language: Sales Manager Name: Kareen Information Interpreted: non-clinical & clinical Senior Business Development Analyst: Senior Business Development Analyst Present Allergies No Known Allergies Allergy (Verified 05/15/23 08:51) Is last menstrual period known: Yes HPI HPI Comments History of Present Illness Details Patient is here today for a follow up on hot flashes. She reports LMP was 2 years ago. She admits to having hot flashes over the last 6 months. Symptoms are daily and frequent hot flashes began in her feet insert upward throughout her entire body. She has gabapentin 300 mg use for her back and sciatic pain during the course of that treatment she does not report any improvement of vasomotor symptoms while taking gabapentin. She has a history of mild depression and anxiety during the pandemic reports her symptoms have pretty much resolved. Reviewed her blood sugars previous fasting and random were elevated she has not been diagnosed with diabetes. [facility] Medical History Left forearm pain Encounter for physical examination Hyperkalemia EDWAR (generalized anxiety disorder) Mild recurrent major depression Screen for STD (sexually transmitted disease) Mixed hyperlipidemia Chronic back pain GERD (gastroesophageal reflux disease) Insomnia Pure hypercholesterolemia Hypovitaminosis D Surgical History History of surgery History of tubal ligation Family History Father Asthma Mother No problems noted. Maternal Grandmother No problems noted. Maternal Grandfather No problems noted. Paternal Grandmother No problems noted. Paternal Grandfather No problems noted. Sister Diabetes Social History Household Members: Spouse Housing: Apartment Alcohol intake: never Patient Tobacco Use Status: Never used Tobacco e-Cigarette/Vaping Use: Never Used Second Hand Smoke Exposure: No service: No Current occupational status: employed Current occupational exposures/hazards: No Cognitive needs: No Hearing needs: No Vision needs: No Female Reproductive History Menstrual Age of Menarche: 12 Review of Systems Const All systems reviewed & are unremarkable except as noted in HPI and below Endo Reports no additional complaints Physical Exam Vital Signs: Last Vital Signs BP 120/80 05/15/23 08:51 BMI result Body Mass Index 26.9 Const General: cooperative, healthy appearing and no acute distress Psych Appearance: well kempt Attitude: cooperative Thought process: Normal thought process present Assessment & Plan Assessment & Plan (1) Hot flashes: Code(s): R23.2 - Flushing Plan Discussed: Options for treatment for hot flashes to include SSRIs, HRT reviewed benefits and risks, side effects. At this time she does not want to have any side effects or risks from HRT or SSRIs. Discussed self-help measures and gave her a handout from up-to-date on hot flashes. Advised to hydrate well, where layer clothing, use of a remote control fan, use of cooling fabrics on her pillow in bed, avoidance of spicy foods and alcohol, and other self-help remedies. Plan thyroid lab, also discussed her recent positive RPR results are pending from state lab advised to could be just a false-positive results we should have confirmation within the next few days our staff will reach out to her for a plan if it is positive she will require treatments with antibiotics. She reports she has a follow up with her primary care next month and will discuss her blood sugars with her PCP. She will return to the office after her lab has been drawn in the next week to 2 for test results and follow-up. All of her questions and concerns were addressed to the best of my ability and shared decision making. She is agreeable to the plan of care. This note is constructed using voice recognition software. While every effort has been made to ensure accuracy, cabin crew errors may have been included. Orders: Orders Thyroid Stimulating Hormone Today R23.2 - Flushing Coding Level of Care Code Est Pt Level 3 (63174) Diagnoses Hot flashes R23.2
[2023-05-15 08:51] VITALS: BP 120/80; BMI 26.9
== END 2023-05-15 09:25 | disposition home or self-care (01) ==
LOC: HO.HWSW 08:47
PROVIDERS: PCP Internal Medicine; Visit Provider Advanced Practice Midwife
DX: R23.2 Flushing (principal)
CPT/HCPCS: 99213

== ENCOUNTER 2023-05-28 12:43 | Outpatient (AMB) | payer OTHER, SELFPAY ==
--- NOTE | 2023-05-28 12:54 | MHC.OFFVIS ---
Intake Intake Visit Reasons: Mixed incontinence Intake Note: New Patient presents for initial visit for incontinence Urology Medications: none Blood Thinner: none PVR: 0ml's Unarmed Security Guard Required: Yes Unarmed Security Guard Name: MEHNAZ CHAPA Accompanied by: Unknown Allergies No Known Allergies Allergy (Verified 05/28/23 14:25) Medication List - Last Reconciled 05/28/23 by CLARISSA Contreras-RAMONE atorvastatin 10 mg PO BEDTIME cholecalciferol (vitamin D3) 25 mcg PO DAILY 90 days clotrimazole-betamethasone 1-0.05 % 1 appl topical BID 2 weeks gabapentin 300 mg PO BEDTIME 20 days ibuprofen 800 mg PO TID omeprazole 40 mg PO DAILY 90 days HPI HPI Comments History of Present Illness Details Chanell is a very pleasant 53-year-old Rwandan-speaking female patient of Dr. Damon Abraham who was accompanied by her significant other at today's office visit. She has a past medical history of anxiety, mixed hyperlipidemia, chronic back pain, GERD, insomnia, and vitamin-D deficiency. She presents to the office today as a new patient for stress incontinence. In discussion with the patient today she reports stress incontinence has been present for many years however feels it is worsening. She describes episodes of incontinence with coughing sneezing laughing and lifting heavy objects. She otherwise denies urinary urgency, urinary frequency, nocturia, hematuria, dysuria, foul smelling urine, changes to urinary stream, flank pain, fever, and or chills. When asked she does report a previous history of 3 vaginal births. She reports 1st was of a premature baby otherwise her other 2 children were average size. She denies labors to have been long. Discussed at length potential causes for stress incontinence. Discussed further treatment options. In office urinalysis results reviewed with the patient today. PVR 0 mL. She discusses her upcoming trip to [place] for vacation. She otherwise offers no other issues or concerns at this time. [facility] Medical History Biological false positive RPR test Left forearm pain Encounter for physical examination Hyperkalemia EDWAR (generalized anxiety disorder) Mild recurrent major depression Screen for STD (sexually transmitted disease) Mixed hyperlipidemia Chronic back pain GERD (gastroesophageal reflux disease) Insomnia Pure hypercholesterolemia Hypovitaminosis D Surgical History History of surgery History of tubal ligation Family History Father Asthma Mother No problems noted. Maternal Grandmother No problems noted. Maternal Grandfather No problems noted. Paternal Grandmother No problems noted. Paternal Grandfather No problems noted. Sister Diabetes Social History Household Members: Spouse Housing: Apartment Alcohol intake: never Patient Tobacco Use Status: Never used Tobacco e-Cigarette/Vaping Use: Never Used Second Hand Smoke Exposure: No service: No Current occupational status: employed Current occupational exposures/hazards: No Cognitive needs: No Hearing needs: No Vision needs: No Female Reproductive History Menstrual Age of Menarche: 12 Review of Systems Const Reports no additional complaints Eyes Reports no additional complaints ENT Reports no additional complaints Card Reports as per HPI Resp Reports no additional complaints GI Reports as per HPI Reports as per HPI Musc Reports as per HPI Neuro Reports no additional complaints Psych Reports as per HPI Endo Reports no additional complaints Edmund/Lymph Reports no additional complaints Aller/Immun Reports no additional complaints Physical Exam Const General: cooperative, healthy appearing, comfortable, no acute distress, well developed, alert and awake Orientation/consciousness: patient oriented x3 Limitations: no limitations HEENT Head: Yes normal to inspection, Yes normocephalic and Yes atraumatic Ears: hearing grossly normal bilaterally Eyes General: appearance normal, both eyes and all related structures Neck Neck: Yes normal visual inspection and Yes trachea midline Chest Chest palpation & inspection: normal inspection of the chest Resp Effort & Inspection: normal respiratory effort and able to speak in complete sentences Cardio Rate: regular rate GI Inspection: Yes normal to inspection General: Yes no CVA tenderness Back/Spine/Pelvis Back: no CVA tenderness Skin General skin exam: no rashes or lesions noted Neuro General: patient oriented x3 Extrem General: Yes normal to inspection Psych Appearance: grossly normal and well kempt Mental Status: mental status grossly normal Speech and movement: Normal speech and movement present and Clear speech present Affect: normal affect Attitude: cooperative Thought process: Normal thought process present Thought content: Normal thought content present Insight: Fair insight present (Psych) Judgement: Fair judgement present (Psych) Office Procedures Post Void Residual Post Residual Void Post Void Residual (PVR): 0 [id number] Void Residual by ultrasound Results AMB Urinalysis, Automated UA Leukoctes 0 Loy/uL Last Edit by Soompie Eleven James on 05/28/23 13:12 UA Nitrite Negative Last Edit by Solv Staffing on 05/28/23 13:12 UA Urobilinogen 0.2 mg/dL Last Edit by Solv Staffing on 05/28/23 13:12 UA Protein 0 mg/dL Last Edit by Solv Staffing on 05/28/23 13:12 UA pH 6.0 Last Edit by Soompie Eleven James on 05/28/23 13:12 UA Blood 0 Jarrett/uL Last Edit by Solv Staffing on 05/28/23 13:12 UA Specific [place] 1.030 Last Edit by Solv Staffing on 05/28/23 13:12 UA Ketone Negative Last Edit by Solv Staffing on 05/28/23 13:12 UA Bilirubin 0 mg/dL Last Edit by Solv Staffing on 05/28/23 13:12 UA Glucose 0 mg/dL Last Edit by Solv Staffing on 05/28/23 13:12 Results Reviewed Results Reviewed: Laboratory Last Values Urine pH (Auto) 6.0 05/28/23 12:58 Specific [place] (Auto) 1.030 05/28/23 12:58 Urine Protein (Auto) 0 mg/dL 05/28/23 12:58 Glucose (UA)(Auto) 0 mg/dL 05/28/23 12:58 Urine Ketones (Auto) Negative 05/28/23 12:58 Urine Blood (Auto) 0 Jarrett/uL 05/28/23 12:58 Urine Nitrite (Auto) Negative 05/28/23 12:58 Urine Bilirubin (Auto) 0 mg/dL 05/28/23 12:58 Urine Urobilinogen (Auto) 0.2 mg/dL 05/28/23 12:58 Leukocyte Esterase (Auto) 0 Loy/uL 05/28/23 12:58 Assessment & Plan Assessment & Plan (1) Stress incontinence: Code(s): N39.3 - Stress incontinence (female) (male) Plan In office urinalysis results reviewed with the patient today; as noted above. Discussed at length potential causes of stress incontinence. Will refer to pelvic floor therapy for further assessment evaluation. Will obtain retroperitoneal ultrasound for further assessment evaluation. Discussed bladder triggers/irritants. Discussed further treatment options regarding stress incontinence. Discussed potential near future in office cystoscopy and or urodynamics for further assessment evaluation. Follow-up in 1-3 months with imaging to be completed prior; or sooner with any issues, concerns, and or questions. Orders: Orders AMB Post Void Residual by ultrasound Today Z13.9 - Encounter for screening, unspecified US retroperitoneal comp Today N39.3 - Stress incontinence (female) (male) PT Evaluation and Treatment Today N39.3 - Stress incontinence (female) (male) AMB Urinalysis Automated Today Z13.9 - Encounter for screening, unspecified Patient Instructions: The patient had an opportunity to ask questions regarding the treatment plan. All questions were answered. Physical exam, labs, and imaging were discussed and reviewed in detail. As well as risks, benefits, and discussion of treatment choices. No major barriers to understanding were identified. The patient expressed understanding and agreement with the above treatment plan. The patient was made aware they should contact our office by phone for worsening of their current condition, the appearance of new symptoms, or with any questions or concerns. Compliance is encouraged with any medications and follow up testing that is ordered. It is a privilege to be allowed the opportunity to participate in? your urological care.? Again, if you have any questions or concerns If you have any questions or concerns please do not hesitate to contact me. The office is [phone]. This note is constructed using voice recognition software. While every effort has been made to ensure accuracy mass spectrometry manager errors may have been included. Yours sincerely, KURTIS Contreras Coding Level of Care Code New Pt Level 4 (29257) Diagnoses Stress incontinence N39.3 CPT Codes Post Residual Void - PVR CPT Code: 17692-Dxby Void Residual by ultrasound ([id number]) Time Spent (min) 30
== END 2023-05-28 13:25 | disposition home or self-care (01) ==
PROVIDERS: PCP Internal Medicine; Visit Provider Nurse Practitioner Family
DX: N39.3 Stress incontinence (female) (male) (principal)
CPT/HCPCS: 99204

== ENCOUNTER → 2023-05-28 12:43 | Outpatient (BNVA) | payer OTHER, SELFPAY | PROVIDERS: PCP Internal Medicine; Visit Provider Nurse Practitioner Family | DX: N39.3 Stress incontinence (female) (male) (principal); Z98.51 Tubal ligation status | CPT/HCPCS: 51798; 81003; 99202 ==

== ENCOUNTER 2023-06-06 07:53 | Outpatient (AMB) | payer OTHER, SELFPAY ==
[2023-06-06 07:56] VITALS: BP 108/62; BMI 26.6
--- NOTE | 2023-06-06 07:56 | MHC.OFFVIS ---
Vital Signs 06/06/23 07:56 Height 5 ft 3 in Weight 149 lb 14.629 oz BMI 26.6 BP 108/62 Intake Visit Reasons: 2 week lab follow up/ HRT Consult/30min Receiving Teller Required: Yes Receiving Teller Language: Loader Technician Name: Kareen ZAMORA Information Interpreted: non-clinical & clinical Business Objects Architect: Business Objects Architect Present Accompanied by: Self / Same As Patient Allergies No Known Allergies Allergy (Verified 06/06/23 08:00) Is last menstrual period known: Yes Post menopausal: Yes HPI Comments Details: Patient is here today for a follow up to discuss her hot flashes. She had a recent TSH which was 1.10. She reports her gabapentin does help with her hot flashes though she was not prescribed it for that purpose. And she admits to hydrating well. [facility] Medical History Biological false positive RPR test Left forearm pain Encounter for physical examination Hyperkalemia EDWAR (generalized anxiety disorder) Mild recurrent major depression Screen for STD (sexually transmitted disease) Mixed hyperlipidemia Chronic back pain GERD (gastroesophageal reflux disease) Insomnia Pure hypercholesterolemia Hypovitaminosis D Surgical History History of surgery History of tubal ligation Family History Father Asthma Mother No problems noted. Maternal Grandmother No problems noted. Maternal Grandfather No problems noted. Paternal Grandmother No problems noted. Paternal Grandfather No problems noted. Sister Diabetes Social History Household Members: Spouse Housing: Apartment Alcohol intake: never Patient Tobacco Use Status: Never used Tobacco e-Cigarette/Vaping Use: Never Used Second Hand Smoke Exposure: No service: No Current occupational status: employed Current occupational exposures/hazards: No Cognitive needs: No Hearing needs: No Vision needs: No Female Reproductive History Menstrual Age of Menarche: 12 Review of Systems Const All systems reviewed & are unremarkable except as noted in HPI and below Endo Reports no additional complaints Physical Exam Vital Signs: Last Vital Signs BP 108/62 06/06/23 07:56 BMI result Body Mass Index 26.6 Const General: cooperative, healthy appearing and no acute distress Psych Appearance: well kempt Attitude: cooperative Thought process: Normal thought process present Assessment & Plan Assessment & Plan (1) Encounter to discuss test results: Code(s): Z71.2 - Person consulting for explanation of examination or test findings (2) Hot flashes: Code(s): R23.2 - Flushing Plan Discussed: MenoNote recommendations by [place] menopause society. Follow-up p.r.n., annual transfer coordinator in March 2024. All of her questions and concerns were addressed to the best of my ability and shared decision making. She is agreeable to the plan of care. This note is constructed using voice recognition software. While every effort has been made to ensure accuracy, pug mill operator errors may have been included.
== END 2023-06-06 08:50 | disposition home or self-care (01) ==
PROVIDERS: PCP Internal Medicine; Visit Provider Advanced Practice Midwife
DX: Z71.2 Person consulting for explanation of examination or test findings (principal); R23.2 Flushing
CPT/HCPCS: 99213

== ENCOUNTER → 2023-06-06 07:53 | Outpatient (BNVA) | payer OTHER, SELFPAY | PROVIDERS: PCP Internal Medicine; Visit Provider Advanced Practice Midwife | DX: Z71.2 Person consulting for explanation of examination or test findings (principal); R23.2 Flushing | CPT/HCPCS: 99212 ==

== ENCOUNTER 2023-08-12 17:14 | Outpatient (AMB) | payer OTHER, SELFPAY ==
--- NOTE | 2023-08-12 17:19 | MHC.PC.OV ---
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 by: Significant Other Allergies No Known Allergies Allergy (Verified 08/12/23 17:44) Medication List - Last Reconciled 08/12/23 by Daniella Abraham MD atorvastatin 10 mg PO BEDTIME cholecalciferol (vitamin D3) 25 mcg PO DAILY 90 days clotrimazole-betamethasone 1-0.05 % 1 appl topical BID 2 weeks gabapentin 300 mg PO BEDTIME 20 days ibuprofen 800 mg PO TID omeprazole 40 mg PO DAILY 90 days Tobacco use date assessed: 08/12/23 Dental Screening Dental Screen Date: 08/12/23 Did you have a dental visit in the last 12 months?: No Did you have a dental problem in the last 6 months where you did not have access to dental care?: No Was dental information given to patient?: Patient has dentist HPI HPI Comments History of Present Illness Details This is a 53-year-old female that comes for her physical exam. Last mammogram was March of this year and was negative. Pap smear done 2023 was negative. Colonoscopy done 2020 and was negative. Denies any chest pain or shortness on breath. Complains of a left foot bunion that she noticed about a month ago. Will be referred to Podiatry. [facility], LAT[facility] Medical History (Updated 08/12/23 @ 19:30 by Daniella Abraham MD) Biological false positive RPR test Left forearm pain Encounter for physical examination Hyperkalemia EDWAR (generalized anxiety disorder) Mild recurrent major depression Screen for STD (sexually transmitted disease) Mixed hyperlipidemia Chronic back pain GERD (gastroesophageal reflux disease) Insomnia Pure hypercholesterolemia Hypovitaminosis D Surgical History History of surgery History of tubal ligation Family History Father Asthma Mother No problems noted. Maternal Grandmother No problems noted. Maternal Grandfather No problems noted. Paternal Grandmother No problems noted. Paternal Grandfather No problems noted. Sister Diabetes Social History Household Members: Spouse Housing: Apartment Alcohol intake: never Patient Tobacco Use Status: Never used Tobacco e-Cigarette/Vaping Use: Never Used Second Hand Smoke Exposure: No service: No Current occupational status: employed Current occupational exposures/hazards: No Cognitive needs: No Hearing needs: No Vision needs: No Female Reproductive History Menstrual Age of Menarche: 12 Questionnaire PHQ-9 Over the last 2 weeks, how often have you been bothered by any of the following problems? 1. Little interest or pleasure in doing things: not at all 2. Feeling down, depressed, or hopeless: not at all 3. Trouble falling or staying asleep, or sleeping too much: not at all 4. Feeling tired or having little energy: not at all 5. Poor appetite or overeating: not at all 6. Feeling bad about yourself - or that you are a failure or have let yourself or your family down: not at all 7. Trouble concentrating on things, such as reading the newspaper or watching television: not at all 8. Moving or speaking so slowly that other people could have noticed. Or the opposite - being so fidgety or restless that you have been moving around a lot more than usual: not at all 9. Thoughts that you would be better off or of hurting yourself in some way: not at all Total score: 0 Depression Screening Interpretation: Negative Depression Screening Done: Yes 06905 - PHQ-9 Billing: Yes Source: Developed by Drs. Michael Ng, Whit Joyce, Catracho Lu and colleagues, with an educational anne from [employer]. Thrive Questionnaire Date Thrive assessed: 08/12/23 I am a: Patient What is your living situation today?: I have a steady place to live Within the past 12 months, did the food you bought not last and you didn't have the money to get more?: Never true Within the past 12 months, did you worry whether your food would run out before you got money to buy more?: Never true Do you have trouble paying for medicines?: No Do you have trouble getting transportation to medical appointments?: No Do you have trouble paying your heating and electricity bill?: No Do you have trouble taking care of your child, family member or friend?: No Do you have trouble with day-to-day activities such as bathing, preparing meals, shopping, managing finances, etc.?: No Are you currently unemployed and looking for a job?: No Are you interested in more education?: No Please select the resources that you would like help with: None Currently or been in a relationship where the following occur: no concerns reported THRIVE Score: 0 AUDIT C Alcohol Use Questionnaire (AUDIT-C) 1. How often do you have a drink containing alcohol?: Never Total Score: 0 EDWAR-7 AMB Questionnaire EDWAR-7 Date EDWAR - 7 assessed: 08/12/23 Feeling nervous, anxious, or on edge: 0 = Not at all Not being able to stop or control worryin = Not at all Worrying too much about different things: 0 = Not at all Trouble relaxin = Not at all Being so restless that it is hard to sit still: 0 = Not at all Becoming easily annoyed or irritable: 0 = Not at all Feeling afraid as if something awful might happen: 0 = Not at all Total EDWAR-7 score (0-4 normal; 5-9 mild; 10-14 moderate; 15-21 severe): 0 Source: Developed by Drs. Michael Ng, Whit Joyce, Catracho Lu and colleagues, with an educational anne from [employer]. EDWAR-7 Assessment Billing EDWAR-7 Assessment Tool: EDWAR-7 Assessment 85383 Review of Systems Const All systems reviewed & are unremarkable except as noted in HPI and below Card Denies chest pain at rest, Denies chest pain with activity, Denies edema, Denies irregular heart rhythm, Denies claudication, Denies dyspnea, Denies dyspnea on exertion, Denies orthopnea, Denies paroxysmal nocturnal dyspnea and Denies slow heart rate Resp Denies cough, Denies dyspnea and Denies dyspnea on exertion Musc Denies atrophy, Denies deformity and Denies limited range of motion Physical exam (Primary Care) Vital Signs: Last Vital Signs BP 120/82 08/12/23 17:21 BMI result Body Mass Index 27.1 Tobacco/Smoking Status: Tobacco use Status Tobacco use date assessed 08/12/23 08/12/23 17:26 Patient Tobacco Use Status Never used Tobacco 08/12/23 17:20 e-Cigarette/Vaping Use Never Used 08/12/23 17:20 PHQ-9: PHQ-9 Score PHQ-9: Total score 0 08/12/23 17:47 Depression Screening Interpretation: Negative Thrive Assessment: Date of Thrive Assessment Date Thrive assessed 08/12/23 08/12/23 17:26 Currently or been in a relationship where the following occur: no concerns reported Const Orientation/consciousness: patient oriented x3 HENMT Head: Yes normal to inspection, Yes normocephalic and Yes atraumatic Ears: external ears normal Eyes General: appearance normal, both eyes and all related structures Eyelids: Yes eyelids normal Conjunctivae: conjunctivae normal Neck Neck: Yes normal visual inspection and Yes supple Resp Effort & Inspection: normal respiratory effort Auscultation: clear to auscultation bilaterally Cardio Jugular venous distension: no JVD Rate: regular rate Rhythm: regular rhythm Heart sounds: S1 normal heart sound present and S2 normal heart sound present GI Inspection: Yes normal to inspection Palpation (GI): Soft to palpation and nontender Auscultation: normal bowel sounds Skin General skin exam: no rashes or lesions noted Neuro General: patient oriented x3 and no focal motor deficits Extrem General: Yes full ROM Left lower extremity: foot (bunion) Psych Appearance: grossly normal Assessment and Plan Assessment & Plan (1) Encounter for physical examination: Code(s): Z00.00 - Encounter for general adult medical examination without abnormal findings Plan: Repeat in a year. (2) Bunion, left foot: Code(s): M21.612 - Bunion of left foot Plan: X-ray ordered. Referred to Podiatry. Orders: Orders Lipid Panel Today E78.5 - Hyperlipidemia, unspecified, Z00.00 - Encounter for general adult medical examination without abnormal findings Comprehensive [place]. Panel Fast Today Z00.00 - Encounter for general adult medical examination without abnormal findings XR foot LT 2V Today M21.612 - Bunion of left foot Referrals Podiatry Referral M21.612 - Bunion of left foot Medications: Refilled clotrimazole-betamethasone 1-0.05 % 1 appl topical BID 2 weeks 15 grams 1RF gabapentin 300 mg PO BEDTIME 20 days 20 caps 0RF G89.29 - Other chronic pain, M54.5 - Low back pain Coding Level of Care Code Est Pt Level 3 (32459) Est Pt Prev Care 40-64y(73214) Diagnoses Encounter for physical examination Z00.00 Bunion, left foot M21.612 Additional Codes EDWAR-7 Assessment Billing - EDWAR-7 Assessment Tool: EDWAR-7 Assessment 33052 ([id number]) Time Spent (min) 33
[2023-08-12 17:21] VITALS: BP 120/82; BMI 27.1
== END 2023-08-12 17:53 | disposition home or self-care (01) ==
PROVIDERS: PCP Internal Medicine; Visit Provider Internal Medicine
DX: Z00.00 Encounter for general adult medical examination without abnormal findings (principal); M21.612 Bunion of left foot
CPT/HCPCS: 99213; 99396

== ENCOUNTER 2023-09-08 06:47 | Outpatient (REF) | payer OTHER, SELFPAY ==
--- NOTE | ~2023-09-08 | XR_ITS ---
EXAMINATION: XR FOOT, LEFT CLINICAL INFORMATION: Left foot pain. Bunion. COMPARISON: None available. TECHNIQUE: AP, lateral, and oblique views of the left foot. FINDINGS: Focal soft tissue swelling overlying the medial aspect of the first metatarsal head. Mild hallux valgus angulation of the first metatarsophalangeal joint measuring 16 degrees. No osseous erosion. No fracture or dislocation. No significant joint space narrowing or marginal osteophytes. Small plantar and dorsal calcaneal enthesophytes. XR/XR foot LT 2V IMPRESSION: 1. Mild hallux valgus angulation of the first metatarsophalangeal joint. Focal soft tissue swelling overlying the medial aspect of the first metatarsal head. 2. Small plantar and dorsal calcaneal spurs.
[2023-09-08 08:40] LABS: Alanine Aminotransferase 20 U/L (0-31); Albumin Level 4.3 g/dL (3.5-5.0); Alkaline Phosphatase 112 U/L (39-117); Anion Gap 13 (12-20); Aspartate Amino Transferase 38 U/L (5-31); Bilirubin Total 0.4 mg/dL (0.0-1.0); Blood Urea Nitrogen 15 mg/dL (9-16); Calcium 9.8 mg/dL (8.4-10.2); Carbon Dioxide 26 mmol/L (22-29); Chloride 107 mmol/L (96-108); Cholesterol 141 mg/dL (<200); Estimated Glomerular Filt Rate > 60; Glucose Fasting 103 mg/dL (60-99); HDL Cholesterol 38 mg/dL (>40); LDL Cholesterol Calculated 80 mg/dL (<100); Potassium 3.9 mmol/L (3.3-5.1); Sodium 142 mmol/L (135-145); Total Protein 7.7 g/dL (6.5-8.0); Triglycerides 115 mg/dL (<150)
== END 2023-09-08 06:48 | disposition home or self-care (01) ==
LOC: HO.LAB 06:47
PROVIDERS: PCP Internal Medicine; Visit Provider Internal Medicine
DX: Z00.00 Encounter for general adult medical examination without abnormal findings (principal); E78.5 Hyperlipidemia, unspecified; M21.612 Bunion of left foot; M20.12 Hallux valgus (acquired), left foot
CPT/HCPCS: 36415; 73620; 80053; 80061

== ENCOUNTER 2023-10-06 10:04 | Outpatient (REF) | payer OTHER, SELFPAY ==
--- NOTE | ~2023-10-06 | US_ITS ---
EXAMINATION: US RETROPERITONEAL COMPLETE (RENAL) CLINICAL INFORMATION: Stress incontinence. COMPARISON: X-ray abdomen 01/30/2018. CT abdomen 12/01/2017. Renal ultrasound 08/14/2017. TECHNIQUE: Real-time imaging of the kidneys and bladder. FINDINGS: RIGHT KIDNEY: 9.8 x 4.1 x 4.3 cm (SAG x AP x TRV). The kidney is normal in size, contour, and echogenicity. Renal cortical thickness is normal. No calculi or focal parenchymal lesions. No hydronephrosis. LEFT KIDNEY: 10.7 x 5.0 x 4.8 cm (SAG x AP x TRV). The kidney is normal in size, contour, and echogenicity. Renal cortical thickness is normal. No calculi or focal parenchymal lesions. No hydronephrosis. BLADDER: Well distended and normal. Bilateral ureteral jets are demonstrated. Prevoid bladder volume is 430.3 mL. Postvoid bladder volume is 30.1 mL. US/US retroperitoneal comp IMPRESSION: Unremarkable renal ultrasound. Electronically signed by: Isabel Troncoso MD 10/27/2023 06:44 PM EDT
== END 2023-10-06 10:05 | disposition home or self-care (01) ==
LOC: HO.US 10:04
PROVIDERS: PCP Internal Medicine; Visit Provider Nurse Practitioner Family
DX: N39.3 Stress incontinence (female) (male) (principal)
CPT/HCPCS: 76770

== ENCOUNTER 2024-02-02 08:51 | Outpatient (AMB) | payer OTHER, SELFPAY ==
[2024-02-02 09:14] VITALS: BP 110/80; BMI 27.6
--- NOTE | 2024-02-02 09:14 | MHC.PC.OV ---
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 The patient has been managing hypercholesterolemia with atorvastatin 10 mg. Additionally, she has been using omeprazole for gastroesophageal reflux disease (GERD). The patient reports refraining from any significant chest pain or shortness of breath that might complicate her surgical procedure. Her past surgeries include several procedures, though details were not all explicitly confirmed. Recent history of electrocardiogram assessments was last conducted a few years ago, and updated results are required. Occasionally, she experiences difficulty when climbing stairs, though it does not present as a sustained issue. EKG and labs pending for medical clearance. Patient has 5 to 7 METs of ADLs. COUNTS INCLUDE 234 BEDS AT THE [facility] Medical History Biological false positive RPR test Left forearm pain Encounter for physical examination Hyperkalemia EDWAR (generalized anxiety disorder) Mild recurrent major depression Screen for STD (sexually transmitted disease) Mixed hyperlipidemia Chronic back pain GERD (gastroesophageal reflux disease) Insomnia Pure hypercholesterolemia Hypovitaminosis D Surgical History History of surgery History of tubal ligation Family History Father Asthma Mother No problems noted. Maternal Grandmother No problems noted. Maternal Grandfather No problems noted. Paternal Grandmother No problems noted. Paternal Grandfather No problems noted. Sister Diabetes Social History Household Members: Spouse Housing: Apartment Alcohol intake: never Patient Tobacco Use Status: Never used Tobacco e-Cigarette/Vaping Use: Never Used Second Hand Smoke Exposure: No service: No Current occupational status: employed Current occupational exposures/hazards: No Cognitive needs: No Hearing needs: No Vision needs: No Female Reproductive History Menstrual Age of Menarche: 12 Questionnaire Thrive Questionnaire Date Thrive assessed: 08/12/23 EDWAR-7 AMB Questionnaire EDWAR-7 Date EDWAR - 7 assessed: 08/12/23 Source: Developed by Drs. Michael Ng, Whit Joyce, Catracho Lu and colleagues, with an educational anne from [employer]. Review of Systems Const Details: - Cardiovascular: Denies chest pain or shortness of breath. - General: Reports occasional difficulty climbing stairs without significant effort. Physical exam (Primary Care) Vital Signs: Last Vital Signs BP 110/80 02/02/24 09:14 BMI result Body Mass Index 27.6 Tobacco/Smoking Status: Tobacco use Status Tobacco use date assessed 08/12/23 02/02/24 09:19 Patient Tobacco Use Status Never used Tobacco 02/02/24 09:19 e-Cigarette/Vaping Use Never Used 02/02/24 09:19 Thrive Assessment: Date of Thrive Assessment Date Thrive assessed 08/12/23 02/02/24 09:19 Const Other: General: No confusion Respiratory: Normal respiratory effort, clear to auscultation bilaterally Cardiovascular: No jugular venous distension, regular rate, regular rhythm, S1 normal heart sound present and S2 normal heart sound present Neurology: Patient oriented x3, no focal motor deficits and No confusion Extremities: Full ROM Psychology: Grossly normal Office Procedures Flu Questionnaire Does the patient have a severe egg allergy?: No Immunizations Fluarix Triv [id number] (PF) 45 mcg (15 mcg x 3)/0.5 mL IM syringe Performing Provider: Daniella Abraham MD [facility] [place] [facility] Documented (not given) by: SERA Melendez on 02/02/24 09:19 Reason Not Given: Patient Refused Coding Level of Care Code Est Pt Level 4 (91491) Complex EM visit Add On G2211 Diagnoses Pre-op evaluation Z01.818 Bunion, left foot M21.612 Pure hypercholesterolemia E78.00 Gastroesophageal reflux disease, unspecified whether esophagitis present K21.9 Esophagitis presence: esophagitis presence not specified Time Spent (min) 23 Assessment & Plan Assessment & Plan (1) Pre-op evaluation: Code(s): Z01.818 - Encounter for other preprocedural examination Category: Medical (2) Bunion, left foot: Code(s): M21.612 - Bunion of left foot Category: Medical (3) Pure hypercholesterolemia: Code(s): E78.00 - Pure hypercholesterolemia, unspecified Category: Medical (4) GERD (gastroesophageal reflux disease): Code(s): K21.9 - Gastro-esophageal reflux disease without esophagitis Category: Medical Qualifiers: Esophagitis presence: esophagitis presence not specified Qualified Code(s): K21.9 - Gastro-esophageal reflux disease without esophagitis Plan - Conduct required preoperative cardiac and laboratory assessments to ensure fitness for bunionectomy. - Continue with atorvastatin 10 mg for hypercholesterolemia. - Use omeprazole as needed for gastroesophageal reflux disease. Patient was informed and verbally consented to the use of an ambient scribe for clinic note documentation during this visit. During the consultation, I emphasized the importance of completing all preoperative testing, including an electrocardiogram and laboratory work, to assess any potential risks before the bunionectomy scheduled on March 19. We reviewed her current medication regime, ensuring continuation of atorvastatin for cholesterol management and omeprazole for GERD. I advised the patient on managing her glucose levels, considering her sometimes elevated glucose readings, and scheduled the preoperative assessments before her trip to [place]. We discussed no immediate need for additional interventions or modifications unless dictated by forthcoming test results. Orders: Orders Influenza [id number] Immunization Today Z23 - Encounter for immunization Patient Instructions: - Complete the electrocardiogram and laboratory tests before the planned trip. - Avoid foods that may elevate glucose levels prior to testing. - Continue taking atorvastatin and omeprazole as currently prescribed. - Return to complete all pending tests by February 25 upon returning from [place].
== END 2024-02-02 09:57 | disposition home or self-care (01) ==
PROVIDERS: PCP Internal Medicine; Visit Provider Internal Medicine
DX: Z01.818 Encounter for other preprocedural examination (principal); M21.612 Bunion of left foot; E78.00 Pure hypercholesterolemia, unspecified; K21.9 Gastro-esophageal reflux disease without esophagitis; Z23 Encounter for immunization

== ENCOUNTER → 2024-02-02 08:51 | Outpatient (BNVA) | payer OTHER, SELFPAY | PROVIDERS: PCP Internal Medicine; Visit Provider Internal Medicine | DX: Z01.818 Encounter for other preprocedural examination (principal); E78.00 Pure hypercholesterolemia, unspecified; K21.9 Gastro-esophageal reflux disease without esophagitis; M21.612 Bunion of left foot; Z28.21 Immunization not carried out because of patient refusal; Z79.899 Other long term (current) drug therapy | CPT/HCPCS: 90471; 99212 ==

== ENCOUNTER 2024-02-11 05:34 | Emergency (ER) | payer OTHER, SELFPAY ==
--- NOTE | ~2024-02-11 | US_ITS ---
EXAMINATION: ULTRASOUND OF THE PELVIS CLINICAL INFORMATION: Right lower quadrant pain. Lymphadenitis. Fluid cul-de-sac. Post menopausal patient. COMPARISON: CT scan of the abdomen and pelvis dated 02/11/2024. Pelvic ultrasound dated 06/30/2017. TECHNIQUE: Transabdominal and transvaginal pelvic ultrasound. A transvaginal study was performed in addition to the transabdominal study which did not yield an adequate examination of the uterus and ovaries due to superimposed distended gas-filled loops of bowel. FINDINGS: Uterus: The uterus is retroverted and retroflexed and mildly atrophic in size and appearance, measuring 6.1 x 3 x 3.6 cm. The endometrial stripe thickness is normal, measuring between 0.4 cm and 0.2 cm in thickness. Trace amount of endometrial free fluid is seen. No focal myometrial mass is seen. The cervical length is normal measuring approximately 2.5 cm. Small nabothian cysts and a coarse calcification are seen in the cervix. Ovaries: The ovaries bilaterally are obscured by overlying bowel gas and are not visualized Other: No adnexal mass. There is a small amount of complex fluid with low-level internal echoes seen around the cervix and lower uterus. US/US pelvic and transvaginal IMPRESSION: 1. Small amount of complex fluid is seen around the cervix and lower uterus, nonspecific. 2. Ovaries bilaterally are obscured by overlying bowel gas and not visualized. 3. Uterus atrophic with trace amount of endometrial free fluid noted. No endometrial stripe thickening is seen and findings may be related to cervical stenosis. Clinical correlation requested with follow-up as clinically appropriate. Electronically signed by: Thu Barnard MD 02/11/2024 11:15 AM [facility]
--- NOTE | ~2024-02-11 | CT_ITS ---
EXAMINATION: CT ABDOMEN AND PELVIS WITH CONTRAST CLINICAL INFORMATION: Right lower quadrant pain COMPARISON: And 1518 TECHNIQUE: Multidetector volumetric images were obtained from the superior aspect of the liver through the pubic symphysis following administration 85 mL of Omnipaque 350 intravenous contrast. Sagittal and coronal reformatted images were obtained on the technologist's workstation. Oral contrast: No This CT examination was performed using dose optimization techniques as appropriate, variously including the following: *Automated exposure control *Adjustment of mA and/or kV according to patient size (this includes techniques or standardized protocols for targeted exams where dose is matched to indication/reason for exam; i.e. extremities or head) *Use of iterative reconstruction technique DLP: 602 mGy-cm FINDINGS: LUNG BASES: The visualized lung bases are unremarkable. LIVER, GALLBLADDER, AND BILIARY TREE: Mild hepatomegaly. No discrete lesion. Hepatic and portal vessels patent. No biliary ductal dilatation. The gallbladder is unremarkable with no evidence of radiopaque gallstones, gallbladder wall thickening, or obvious pericholecystic inflammatory changes. PANCREAS: Unremarkable. SPLEEN: Unremarkable. ADRENAL GLANDS: Unremarkable. KIDNEYS AND URETERS: The kidneys are normal in size, shape, and attenuation. No hydronephrosis, hydroureter, or calculi seen. No perinephric stranding. BLADDER: Unremarkable. GASTROINTESTINAL TRACT: The small and large bowel are unremarkable. The appendix is unremarkable. Low-lying cecum noted incidentally. There are mildly prominent lymph nodes noted within the right lower quadrant ileocolic mesentery. Terminal ileum normal. Trace physiologic free fluid in the cul-de-sac. ABDOMINAL WALL: No significant hernia is appreciated. LYMPH NODES: Normal. VASCULAR: Unremarkable. PELVIC VISCERA: Within the right adnexa, there is a small focus of calcification which is new since baseline. This is likely of doubtful significance. It only measures up to 6 mm is presumably related to the right ovary. OSSEOUS STRUCTURES: Unremarkable. CT/CT abdomen pelvis w IV con IMPRESSION: 1. Normal appendix. 2. Nonspecific mildly prominent lymph nodes right lower quadrant ileocolic mesentery. Consider mesenteric adenitis. 3. Trace free fluid in the cul-de-sac nonspecific possibly physiologic. Correlate with patient's menstrual state. Patient is post menopausal consider pelvic ultrasound correlation. Fleischner guidelines were followed. Electronically signed by: Olman Glass MD 02/11/2024 08:17 AM [facility]
[2024-02-11 05:37] VITALS: BP 144/67; PULSE 56; RESP 14; TEMP 35.6; O2SAT 98; BMI 25.9
[2024-02-11 05:53] LABS: Basophils Absolute Auto 0.1 X10*3/uL (0.0-0.2); Basophils Percent Auto 0.7 % (0-2); Eosinophils Absolute Auto 0.2 X10*3/uL (0.0-0.4); Eosinophils Percent Auto 2.4 % (0-4); Hematocrit 40.2 % (37.0-47.0); Hemoglobin 13.5 g/dl (12.0-16.0); Imm Gran Abs Auto 0.02 X10*3/uL (0.00-0.03); Imm Gran Pct Auto 0.3 % (0.0-0.4); Lymphocytes Absolute Auto 3.5 X10*3/uL (1.2-4.9); Lymphocytes Percent Auto 45.3 % (20-40); MANUAL DIFF FLAG NO; Mean Corpuscular HGB Conc 33.6 g/dl (31.0-35.0); Mean Corpuscular Hemoglobin 28.8 pg (27.0-33.0); Mean Corpuscular Volume 85.7 fL (80.0-98.0); Mean Platelet Volume 9.5 fL (9.4-12.3); Monocytes Absolute Auto 0.5 X10*3/uL (0.1-1.2); Monocytes Percent Auto 6.4 % (2-11); Neutrophils Absolute Auto 3.4 x10*3/uL (2.0-8.3); Neutrophils Percent Auto 44.9 % (45-73); Platelet Count 352 X10*3/uL (160-400); Red Blood Count 4.69 X10*6/uL (4.20-5.50); Red Cell Distribution Width 13.2 % (11.0-16.0); White Blood Count 7.6 X10*3/uL (4.8-10.8)
[2024-02-11 06:06] LABS: Alanine Aminotransferase 19 U/L (0-31); Albumin Level 4.4 g/dL (3.5-5.0); Alkaline Phosphatase 110 U/L (39-117); Anion Gap 11 (12-20); Aspartate Amino Transferase 42 U/L (5-31); Bilirubin Total 0.4 mg/dL (0.0-1.0); Blood Urea Nitrogen 14 mg/dL (9-16); Calcium 9.6 mg/dL (8.4-10.2); Carbon Dioxide 26 mmol/L (22-29); Chloride 107 mmol/L (96-108); Creatinine Clr Calc Pharmacy 78.5; Estimated Glomerular Filt Rate > 60; Glucose Random 114 mg/dL (60-115); Lipase 21 U/L (8-78); Potassium 3.9 mmol/L (3.3-5.1); Sodium 140 mmol/L (135-145); Total Protein 7.8 g/dL (6.5-8.0)
--- NOTE | 2024-02-11 06:38 | ED.ABDPAIN ---
HPI - Abdominal Pain General Chief Complaint: Abdominal Pain Stated Complaint: lower right abd pain Time Seen by Provider: 02/11/24 06:36 Source: patient Mode of arrival: ambulatory Limitations: no limitations History of Present Illness ED Provider: Miryam Damon NP HPI narrative: Patient is a 54-year-old female with past medical history of GERD, hyperlipidemia, GERD, major depression, chronic back pain who presents emergency department for evaluation of abdominal pain. She reports that 3 days ago she began with mid right-sided abdominal pain, initial nursing triage indicates right upper quadrant pain but rather during my evaluation she is pointing to the mid/lower quadrant. At times it radiates to the back. Endorses varying intensity that is not exacerbated by eating or drinking. She has received some relief from ibuprofen. However she has not taken ibuprofen in the past 24 hours. She has not trialed additional OTC analgesics. She denies associated fevers, chills, chest pain, nausea, vomiting, hematemesis, diarrhea, constipation, hematochezia, melena, dysuria, urinary frequency, urinary urgency, urinary hesitancy, hematuria. denies pelvic pain or abnormal vaginal discharge. Denies concern for sexually transmitted infection. Denies any recent precipitating injury or heavy lifting. Related Data Previous Rx's ?Medication ?Instructions ?Recorded atorvastatin 10 mg tablet 10 mg PO BEDTIME #90 tabs 09/12/22 cholecalciferol (vitamin D3) 25 25 mcg PO DAILY 90 days #90 caps 03/30/23 mcg (1,000 unit) capsule omeprazole 40 mg capsule,delayed 40 mg PO DAILY 90 days #90 caps 06/07/23 release gabapentin 300 mg capsule 300 mg PO BEDTIME 20 days #20 caps 08/12/23 ibuprofen 800 mg tablet 800 mg PO TID #90 tabs 01/31/24 Allergies Allergy/AdvReac Type Severity Reaction Status Date / Time No Known Allergies Allergy Verified 02/11/24 05:39 Review of Systems Review of Systems Yes all other systems are reviewed and are negative PMFSH Past Medical History Attestation statement: The following information was validated with the patient. Source: old records reviewed Medical History Biological false positive RPR test Left forearm pain Encounter for physical examination Hyperkalemia EDWAR (generalized anxiety disorder) Mild recurrent major depression Screen for STD (sexually transmitted disease) Mixed hyperlipidemia Chronic back pain GERD (gastroesophageal reflux disease) Insomnia Pure hypercholesterolemia Hypovitaminosis D Surgical History History of surgery History of tubal ligation Family History Family History Father Asthma Mother No problems noted. Maternal Grandmother No problems noted. Maternal Grandfather No problems noted. Paternal Grandmother No problems noted. Paternal Grandfather No problems noted. Sister Diabetes Social History Social History Household Members: Spouse Housing: Apartment Alcohol intake: never Patient Tobacco Use Status: Never used Tobacco Smoked in Last 30 Days: No e-Cigarette/Vaping Use: Never Used Second Hand Smoke Exposure: No Use of substances other than those prescribed or required for medical reasons: No Advance Directives: No Advance Directives Information Provided: Yes Do you have a plan to hurt others: No Plan Patient : No service: No Current occupational status: employed Current occupational exposures/hazards: No Cognitive needs: No Hearing needs: No Vision needs: No Physical Exam ED Vital Signs: Vital Signs - 24 hr 02/11/24 05:37 02/11/24 08:02 Temperature 96.1 F L Pulse Rate 56 Respiratory Rate 14 15 Blood Pressure 144/67 H Pulse Oximetry 98 Oxygen Delivery Method Room Air BMI result Body Mass Index 25.9 Appearance: Alert.?Oriented to person, place and time. No acute distress.?Normal affect.?? Neck: Normal inspection.? Neck supple.?? CVS: Heart sounds normal. Normal heart rate and rhythm.? Pulses normal.?? Respiratory: No respiratory distress.? Lung sounds clear to auscultation bilaterally?? Abdomen: Soft with right lower quadrant tenderness upon palpation. No rebound tenderness at McBurney's point. Negative psoas sign. Negative Rovsing sign. Negative Gomez sign. No CVAT. Normoactive bowel sounds. No pulsatile mass.?? Skin: Skin warm and dry.? Normal skin color.? Extremities: No lower extremity edema.? Neuro: Moves all extremities spontaneously. Sensation intact bilaterally. Ambulates with normal steady gait. Course Reevaluation(s) Reevaluation #1: CT of the abdomen and pelvis revealing a normal appendix, mildly prominent lymph nodes in the right lower quadrant ileocolic mesentery, possibly mesenteric adenitis, trace fluid in the cul-de-sac nonspecific possibly physiologic, however she is postmenopausal X 2 years, therefore will obtain pelvic ultrasound for further evaluation. I did discuss with patient potential for mesenteric lymphadenitis as a possibly self-limiting condition, which would require conservative treatment including pain management adequate hydration, anticipated timeline for improvement 1-4 weeks. We did discuss potential etiologies for this including viral/bacterial gastroenteritis though she is not having symptoms that would support this, plan for bowel disease, lymphoma, malignancy. Reevaluation #2: Pelvic ultrasound revealing complex fluid around the cervix and lower uterus, uterus is atrophic with trace amount of endometrial free fluid noted, findings may be related to cervical stenosis. Patient made aware of these findings and advised outpatient follow-up with consulting analyst for further evaluation and treatment. Medical Decision Making Medical Decision Making MDM Narrative: Patient is a 54-year-old female with past medical history of GERD, hyperlipidemia, GERD, major depression, chronic back pain who presents emergency department for evaluation of right lower quadrant abdominal pain that radiates to the back as per HPI. Abdominal examination reveals tenderness over the right lower quadrant, no rebound tenderness. overall without signs of systemic toxicity found to be afebrile without tachycardia, no hypotension. No rigidity guarding or percussive tenderness. No associated chest pain shortness of breath or URI symptoms to suggest pneumonia, no clinical evidence of DVT or personal history of VTE/malignancy to suggest pulmonary embolism. Unlikely myocardial infarction as pain is lower abdomen and is without chest pain, less likely AAA, aortic dissection. No upper abdominal tenderness upon palpation, negative Gomez sign, lower suspicion for acute cholecystitis, choledocholithiasis, no fever or jaundice to suggest acute cholangitis. Denies associated acid reflux, no tenderness upon palpation over the epigastrium or left upper quadrant to suggest gastritis, no recent hematemesis history less likely to suggest PUD. No rebound tenderness at McBurney's point, rigidity, guarding she does however have tenderness upon palpation over the right lower quadrant which may suggest acute appendicitis. No tenderness of the left lower quadrant nor associated nausea, vomiting, diarrhea, constipation, hematochezia or melena to suggest diverticulitis or GI bleed. No appreciable hernia to suggest strangulation/incarceration. Lower suspicion for bowel obstruction. No distention or rigidity to suggest GI perforation. Denies associated genitourinary symptoms to suggest UTI/pyelonephritis, renal colic, hydronephrosis, however will obtain urinalysis for further evaluation. Denies concern for sexually transmitted infections, history of ovarian cysts, lower clinical suspicion for TOA/torsion. Differential Diagnosis Differential Diagnoses: The differential diagnosis associated with the presentation includes (See narrative above) Admission/Observation Consideration of admission/observation: Escalation of care including admission/observation considered (See narrative above ) Lab Data MDM Lab Attestation statement: I reviewed the patient's lab results. 02/11/24 05:49 02/11/24 05:49 Labs: Lab Results 02/11/24 02/11/24 Range/Units 05:49 07:19 WBC 7.6 (4.8-10.8) X10*3/uL RBC 4.69 (4.20-5.50) X10*6/uL Hgb 13.5 (12.0-16.0) g/dl Hct 40.2 (37.0-47.0) % MCV 85.7 (80.0-98.0) fL MCH 28.8 (27.0-33.0) pg MCHC 33.6 (31.0-35.0) g/dl RDW 13.2 (11.0-16.0) % Plt Count 352 (160-400) X10*3/uL MPV 9.5 (9.4-12.3) fL Immature Gran % (Auto) 0.3 (0.0-0.4) % Neut % (Auto) 44.9 L (45-73) % Lymph % (Auto) 45.3 H (20-40) % Nicholas % (Auto) 6.4 (2-11) % Eos % (Auto) 2.4 (0-4) % Baso % (Auto) 0.7 (0-2) % Lymph # (Auto) 3.5 (1.2-4.9) X10*3/uL Nicholas # (Auto) 0.5 (0.1-1.2) X10*3/uL Eos # (Auto) 0.2 (0.0-0.4) X10*3/uL Baso # (Auto) 0.1 (0.0-0.2) X10*3/uL Abs Immat Gran (auto) 0.02 (0.00-0.03) X10*3/uL Absolute Neuts (auto) 3.4 (2.0-8.3) x10*3/uL Absolute Nucleated RBC 0.000 (0.0-0.012) X10*3/uL Nucleated RBC % (auto) 0.0 (0.0-0.2) /100WBC Sodium 140 (135-145) mmol/L Potassium 3.9 (3.3-5.1) mmol/L Chloride 107 (96-108) mmol/L Carbon Dioxide 26 (22-29) mmol/L Anion Gap 11 L (12-20) BUN 14 (9-16) mg/dL Creatinine 0.74 (0.5-1.4) mg/dL Estim Creat Clear Calc 78.5 Estimated GFR > 60 Random Glucose 114 (60-115) mg/dL Calcium 9.6 (8.4-10.2) mg/dL Total Bilirubin 0.4 (0.0-1.0) mg/dL AST 42 H (5-31) U/L ALT 19 (0-31) U/L Alkaline Phosphatase 110 (39-117) U/L Total Protein 7.8 (6.5-8.0) g/dL Albumin 4.4 (3.5-5.0) g/dL Lipase 21 (8-78) U/L Urine Color Yellow Urine Appearance Clear Urine pH 5.5 (5.0-9.0) Ur Specific [place] 1.020 (1.005-1.025) Urine Protein Negative (Neg-Trace) mg/dL Urine Glucose (UA) Negative (Negative) mg/dL Urine Ketones Negative (Negative) mg/dL Urine Blood Small (1+) H (Negative) Urine Nitrite Negative (Negative) Ur Leukocyte Esterase Trace H (Negative) Urine RBC 3-5 H (0-2) /HPF Urine WBC 0-5 (0-5) /HPF Ur Squamous Epith Cells 0-2 (0-2) /HPF Urine Bacteria None Seen (None Seen) Hyaline Casts 0-2 (0-2) /LPF Radiology Impression Discussion of test interpretation with radiology: I have reviewed the radiologist's reading. Radiologist Impression: CT/CT abdomen pelvis w IV con IMPRESSION: 1. Normal appendix. 2. Nonspecific mildly prominent lymph nodes right lower quadrant ileocolic mesentery. Consider mesenteric adenitis. 3. Trace free fluid in the cul-de-sac nonspecific possibly physiologic. Correlate with patient's menstrual state. Patient is post menopausal consider pelvic ultrasound correlation. US/US pelvic and transvaginal IMPRESSION: 1. Small amount of complex fluid is seen around the cervix and lower uterus, nonspecific. 2. Ovaries bilaterally are obscured by overlying bowel gas and not visualized. 3. Uterus atrophic with trace amount of endometrial free fluid noted. No endometrial stripe thickening is seen and findings may be related to cervical stenosis. Clinical correlation requested with follow-up as clinically appropriate. Independent Historian Clinical information obtained from an independent historian. History obtained from or confirmed by: Spouse External Record Review External record reviewed: Outpatient record Chronic Conditions Patient?s care impacted by: Other (See narrative above) Medications Administered Discontinued Medications Generic Name Dose Route Start Last Admin Trade Name Freq PRN Reason Stop Dose Admin Sodium Chloride 1,000 mls @ 999 mls/hr 02/11/24 07:00 02/11/24 08:36 Ns IV 02/11/24 08:00 Infused .Q1H1M BAMBI Infusion Iohexol 100 ml 02/11/24 07:35 02/11/24 07:35 Iohexol 350 Mg/Ml 100 Ml Infus..Btl IV 02/11/24 07:36 85 ml ONCE ONE Administration Ketorolac Tromethamine 15 mg 02/11/24 06:49 02/11/24 07:17 Ketorolac Tromethamine 15 Mg/Ml Vial IVPUSH 02/11/24 06:50 15 mg ONCE ONE Administration Morphine Sulfate 2 mg 02/11/24 07:47 02/11/24 08:02 Morphine Sulfate 2 Mg/Ml Cartridge IVPUSH 02/11/24 07:48 2 mg ONCE ONE Administration Protocol Ondansetron HCl 4 mg 02/11/24 07:47 02/11/24 08:02 Ondansetron Hcl 4 Mg/2 Ml Vial IVPUSH 02/11/24 07:48 4 mg ONCE ONE Administration Critical Care Time Critical Care Time Critical Care Time: Yes Total Critical Care Time: 35 Attestation: I personally attest to this critical care time spent taking care of the patient exclusive of all other billable procedures was approximately 35 minutes including initial evaluation of patient, ordering tests, CT interpretation, IV and re-evaluation, medical consultation, documentation, re-evaluation. Discharge Plan Discharge Clinical Impression: Mesenteric adenitis, Atrophy of uterus Patient Disposition: Home, Self-Care Instructions: Mesenteric Adenitis (ED) Additional Instructions: As discussed, the CT scan of your abdomen reveals inflammation of the lymph nodes. This is a very nonspecific finding. But otherwise there is not an obvious source for your pain. Mesenteric adenitis can result in pain as you were experiencing. Treatment is to be sure that you are staying well hydrated, and using anti-inflammatory medication. Pain for some may last 1-4 weeks. Your blood work today was very reassuring. Your urine test is without evidence of infection. You can take ibuprofen 200 mg, 3 tablets (600mg) every 6-8 hours as needed for pain, in addition to Tylenol 500 mg, 2 tablets (1,000mg) every 4-6 hours as needed for pain, but not to exceed 3 doses daily (3,000mg).? Pelvic ultrasound findings appear most consistent with likely postmenopausal state, there is a small amount of fluid around the cervix in the lower uterus, atrophy of the uterus. I have a lower suspicion that this is the cause for your pain. However, please contact your OBGYN provider to arrange for further follow-up, such as potentially Pap smear and/or further evaluation at their discretion Prescriptions: No Action atorvastatin 10 mg tablet 10 mg PO BEDTIME Qty: 90 1RF cholecalciferol (vitamin D3) 25 mcg (1,000 unit) capsule 25 mcg PO DAILY 90 Days Qty: 90 3RF omeprazole 40 mg capsule,delayed release(DR/EC) 40 mg PO DAILY 90 Days Qty: 90 3RF ibuprofen 800 mg tablet 800 mg PO TID Qty: 90 3RF gabapentin 300 mg capsule 300 mg PO BEDTIME 20 Days Qty: 20 0RF Referrals: Daniella Leo MD [Primary Care Provider] - Chandra Naqvi MD [Physician] - Print Language: Hungarian
[2024-02-11] MEDS: Ketorolac Tromethamine 15 MG/ML VIAL IVPUSH (07:17)
[2024-02-11] MEDS: 0.9 % Sodium Chloride 1,000 ML 999 ML IV (07:18)
[2024-02-11] MEDS: iohexoL 350 MG/ML 100 ML INFUS..BTL IV (07:35)
[2024-02-11 07:48] LABS: Appearance Urine Clear; Color Urine Yellow; Glucose Urine UA Negative (Negative); Leukocyte Esterase Urine Trace (Negative); Nitrite Urine Negative (Negative); PH 5.5 (5.0-9.0); UMIC TRIGGER UACC YES; Urine Blood Small (1+) (Negative); Urine Ketones Negative (Negative); Urine Protein Negative (Neg-Trace)
[2024-02-11 08:02] VITALS: RESP 15
[2024-02-11] MEDS: ondansetron HCL 4 MG/2 ML VIAL IVPUSH (08:02)
[2024-02-11] MEDS: Morphine Sulfate 2 MG/ML CARTRIDGE IVPUSH (08:02)
[2024-02-11 08:10] LABS: Bacteria Urine None Seen (None Seen); Hyaline Casts Urine 0-2 /LPF (0-2); Squamous Epithelial Cell Urine 0-2 /HPF (0-2); WBC Urine 0-5 /HPF (0-5)
[2024-02-11 11:47] VITALS: BP 122/76; PULSE 76; RESP 18; TEMP 36.9; O2SAT 98
== END 2024-02-11 11:48 | disposition home or self-care (01) ==
PROVIDERS: Nurse Practitioner Family; Emergency Provider Emergency Medicine; PCP Internal Medicine
DX: I88.0 Nonspecific mesenteric lymphadenitis (principal); N85.8 Other specified noninflammatory disorders of uterus; R10.31 Right lower quadrant pain; R10.813 Right lower quadrant abdominal tenderness; R10.2 Pelvic and perineal pain; M54.50 Low back pain, unspecified; R11.0 Nausea
CPT/HCPCS: 36415; 74177; 76830; 76856; 80053; 81001; 83690; 85025; 96361; 96374; 96375; 99284; 99285; J1885; J2270; J2405; Q9967

== ENCOUNTER → 2024-03-11 08:17 | Outpatient (REF) | payer OTHER, SELFPAY ==
--- NOTE | 2024-03-11 08:25 | ECG_ITS ---
Test Reason : PRE OP Blood Pressure : */* mmHG Vent. Rate : 62 BPM Atrial Rate : 62 BPM P-R Int : 136 ms QRS Dur : 78 ms QT Int : 414 ms P-R-T Axes : 46 46 34 degrees QTcB Int : 420 ms Normal sinus rhythm Normal ECG When compared with ECG of 13-Jun-2021 15:34, No significant change was found Referred By: Daniella Abraham Electronically Signed By: FAUSTINO CASTRO MD
== END ==
LOC: HO.CARD 08:17
PROVIDERS: Visit Provider Internal Medicine
DX: Z01.818 Encounter for other preprocedural examination (principal)
CPT/HCPCS: 93005

== ENCOUNTER → 2024-03-11 08:25 | Outpatient (BNV) | payer OTHER, SELFPAY | PROVIDERS: Visit Provider Internal Medicine Cardiovascular Disease | DX: Z01.810 Encounter for preprocedural cardiovascular examination (principal) | CPT/HCPCS: 93010 ==

== ENCOUNTER 2024-11-07 17:54 | Emergency (ER) | payer OTHER, SELFPAY ==
[2024-11-07 17:57] VITALS: BP 156/70; PULSE 62; RESP 18; TEMP 36.4; O2SAT 99; BMI 27.1
--- NOTE | 2024-11-07 17:57 | ED.GENADULT ---
HPI - General Adult General Chief complaint: Skin/Abscess/Foreign Body Stated complaint: lump back of neck ? infection Time Seen by Provider: 11/07/24 18:01 Source: patient, family, RN notes reviewed and old records reviewed Mode of arrival: ambulatory Limitations: no limitations History of Present Illness ED Provider: Farhad WHITTEN narrative: Patient is a 54-year-old female presenting to the emergency department with family who report that patient has had an abscess to her left posterior neck for the past 4-5 days. Family states it has been draining purulent discharge. Patient denies any fever, chills, body aches. States the area is painful. complaint: abscess Onset (ago): day(s) Location: neck Related Data Previous Rx's ?Medication ?Instructions ?Recorded atorvastatin 10 mg tablet 10 mg PO BEDTIME #90 tabs 09/12/22 cholecalciferol (vitamin D3) 25 25 mcg PO DAILY 90 days #90 caps 03/30/23 mcg (1,000 unit) capsule ibuprofen 800 mg tablet 800 mg PO TID #90 tabs 01/31/24 omeprazole 40 mg capsule,delayed 40 mg PO DAILY 90 days #90 caps 03/14/24 release gabapentin 300 mg capsule 300 mg PO BEDTIME 20 days #20 caps 04/20/24 cephalexin 500 mg capsule 500 mg PO QID #28 caps 11/07/24 Allergies Allergy/AdvReac Type Severity Reaction Status Date / Time No Known Allergies Allergy Verified 11/07/24 17:59 Review of Systems Review of Systems: As per hPI Yes all other systems are reviewed and are negative Constitutional: Constitutional: Reports as per HPI PMFSH Past Medical History Medical History Biological false positive RPR test Left forearm pain Encounter for physical examination Hyperkalemia EDWAR (generalized anxiety disorder) Mild recurrent major depression Screen for STD (sexually transmitted disease) Mixed hyperlipidemia Chronic back pain GERD (gastroesophageal reflux disease) Insomnia Pure hypercholesterolemia Hypovitaminosis D Surgical History History of surgery History of tubal ligation Family History Family History Father Asthma Mother No problems noted. Maternal Grandmother No problems noted. Maternal Grandfather No problems noted. Paternal Grandmother No problems noted. Paternal Grandfather No problems noted. Sister Diabetes Social History Social History Household Members: Spouse Housing: Apartment Alcohol intake: never Patient Tobacco Use Status: Never used Tobacco e-Cigarette/Vaping Use: Never Used Second Hand Smoke Exposure: No service: No Current occupational status: employed Current occupational exposures/hazards: No Cognitive needs: No Hearing needs: No Vision needs: No Physical Exam ED Vital Signs: Vital Signs - 24 hr 11/07/24 17:57 Temperature 97.5 F Pulse Rate 62 Respiratory Rate 18 Blood Pressure 156/70 H Pulse Oximetry 99 Oxygen Delivery Method Room Air BMI result Body Mass Index 27.1 Vital signs have been reviewed and appear to be correct. Blood pressure normal. Heart rate normal. Respiratory rate normal. Temperature normal. Oxygen saturation normal. Const General: cooperative, healthy appearing and no acute distress Orientation/consciousness: oriented to person, oriented to place, oriented to time and patient oriented x3 Limitations: no limitations HENID Head: Yes normocephalic and Yes atraumatic Ears: external ears normal General nose exam: Normal external nose present Face and sinus: Yes face symmetric Mouth: oropharynx normal and moist mucous membranes Throat: Yes uvula midline Eyes Pupils: Equal, round and reactive pupils present Neck Neck: Yes normal visual inspection, Yes full ROM, Yes no lymphadenopathy and Yes supple Neck images:  1. 1cm diameter indurated abscess with central opening, no active drainage, minimal surrounding erythema Resp Effort & Inspection: normal respiratory effort and able to speak in complete sentences Auscultation: clear to auscultation bilaterally Cardio Rate: regular rate Rhythm: regular rhythm Heart sounds: S1 normal heart sound present and S2 normal heart sound present GI Palpation (GI): Soft to palpation and nontender Auscultation: normoactive bowel sounds General: Yes no CVA tenderness Back/Spine/Pelvis Back: no CVA tenderness Skin General skin exam: elasticity normal and turgor normal Neuro General: oriented to person, oriented to place, oriented to time, patient oriented x3, moves all extremities, no focal motor deficits and CN's II-XI intact bilaterally Cranial nerves: Yes Equal, round and reactive pupils present Cognition (Neuro): normal cognition Extrem General: Yes full ROM, Yes no pedal edema and Yes no calf tenderness Psych Mental Status: mental status grossly normal Affect: normal affect Thought process: Normal thought process present Medical Decision Making Medical Decision Making [facility] Narrative: Patient is a 54-year-old female presenting to the emergency department with family who report that patient has had an abscess to her left posterior neck for the past 4-5 days. On exam patient is awake, A+Ox3, VS WNL, afebrile, normal neurological exam without focal deficits, physical exam findings as above. Given reported symptoms and physical exam findings, initial differential includes but is not limited to abscess, cellulitis. No fluctuance noted and abscess has spontaneous opening. Patient is well appearing and afebrile. Will discharge home on keflex, advised daily or more frequent monitoring of the area. Return precautions discussed. Follow up with PCP as needed. Family asked about cleaning with alcohol, advised against this. Recommended just soap and water or warm salt water compresses. Patient and family verbalized understanding of and agreement with plan. Differential Diagnosis Differential Diagnoses: The differential diagnosis associated with the presentation includes as per [facility] Admission/Observation Consideration of admission/observation: Escalation of care including admission/observation considered Patient would have been admitted to the hospital and transferred to appropriate facility had their clinical presentation warranted hospital admission. External Record Review External record reviewed: Inpatient record, Office record and Outpatient record Prescription Management I considered prescription management with: Antibiotic Discharge Plan Discharge Clinical Impression: Abscess of neck Patient Disposition: Home, Self-Care Instructions: Abscess (ED), Abscess Follow-up (ED) Additional Instructions: You were evaluated in the ER for an abscess. Please keep the area surrounding the abscess clean and dry. You were given a prescription for antibiotics, please take the antibiotics as directed for the full course of the medication. You should perform a skin check of the area daily. If the abscess progresses you may have to have the abscess incised and drained. You can use Tylenol or ibuprofen per package directions as needed for pain. If necessary, you can alternate these medications so that you take one medication every 3 hours. For instance, at noon take ibuprofen, then at 3:00 p.m. take Tylenol, then at 6:00 p.m. take ibuprofen. Please schedule an appointment with your primary care physician as soon as possible for follow-up. Return to the emergency department if you experience fevers greater than 100.4? F, increased in area of redness or swelling, increasing amount of discharge from the area, increased tenderness around the area, or any other concerning symptoms. Prescriptions: New cephalexin 500 mg capsule 500 mg PO QID Qty: 28 0RF No Action atorvastatin 10 mg tablet 10 mg PO BEDTIME Qty: 90 1RF cholecalciferol (vitamin D3) 25 mcg (1,000 unit) capsule 25 mcg PO DAILY 90 Days Qty: 90 3RF ibuprofen 800 mg tablet 800 mg PO TID Qty: 90 3RF omeprazole 40 mg capsule,delayed release(DR/EC) 40 mg PO DAILY 90 Days Qty: 90 3RF gabapentin 300 mg capsule 300 mg PO BEDTIME 20 Days Qty: 20 0RF Print Language: Czech
--- OUTSIDE RECORDS SUMMARY | 2024-11-07 18:14 | XMS_ITS | Clinical Summary ---
Author Organization [facility] Address [address] [place] [id number] Phone Care Team Providers Care Electric Arc Furnace Operator Name Role Phone Daniella Abraham MD Primary Care Provider [phone] Allergies No known active allergies Medications atorvastatin (LIPITOR) 10 mg tablet Take 1 tablet (10 mg total) by mouth 1 (one) time each day. Active cholecalciferol (VITAMIN D-3) 25 mcg (1,000 unit) capsule 1 (one) time each day. Active clotrimazole-be tamethasone (LOTRISONE) 1-0.05 % cream Apply topically 2 times daily. Active gabapentin (NEURONTIN) 300 mg capsule Take 1 capsule (300 mg total) by mouth 2 (two) times a day. Active omeprazole (PriLOSEC) [address] capsule Take 1 capsule (40 mg total) by mouth 1 (one) time each day. Active oxyCODONE (ROXICODONE) 5 mg immediate release tablet Take 1 tablet (5 mg total) by mouth every 4 (four) hours if needed for severe pain. Max Daily Amount: 30 mg 35 tablet Active Active Problems Problem Noted Date Diagnosed Date Acquired hallux valgus of left foot 03/15/2024 Bunion of left foot 01/01/2024 Hallux valgus (acquired), left foot 01/01/2024 Surgical History Surgery Date Site/Laterality Comments TUBAL LIGATION BELT ABDOMINOPLASTY Medical History Medical History Date Comments Hyperlipidemia GERD (gastroesophageal reflux disease) Chronic back pain Joint pain Social History Tobacco Use Types Packs/Day Years Used Date Smoking Tobacco: Never Tobacco Cessation:Counseling Given: Not Answered Alcohol Use Standard Drinks/Week Comments Not Currently 0 (1 standard drink = 0.6 oz pur e alcohol) Interpersonal Safety Answer Date Record ed Physical Abuse 03/19/2024 Verbal Abuse 03/19/2024 Comments No Sex and Gender Information Value Date Recorded Sex Assigned at Female 03/08/2024 9:29 AM EST Legal Sex Female 11:41 AM EDT Gender Identity Female 03/08/2024 9:29 AM EST Sexual Orientation Straight 03/08/2024 9: 29 AM EST Obstetrics History Last Filed Vital Signs Vital Sign Reading Time Taken Comments Blood Pressure 119/58 03/19/2024 10:15 AM EST Pulse 55 03/19/2024 10:15 AM EST Temperature 36.8 C (98.2 F) 03/19/2024 9:45 AM EST Respiratory Rate 18 03/19/2024 9:45 AM EST Oxygen Saturation 100% 03/19/2024 10:15 AM EST Inhaled Oxygen Concentration - - Weight 69.4 kg (153 lb) 06/02/2024 7:56 AM EDT Height 160 cm (5' 2.99 ) 06/02/2024 7:56 AM EDT Body Mass Index 27.11 06/02/2024 7:56 AM EDT Plan of Treatment Health Maintenance Due Date Last Done Comments DTaP,Tdap,and Td Vaccines (1 - Tdap) 01/23/1988 Hepatitis B Vaccines (1 of 3 - 19+ 3-dose series) 01/23/1988 Cervical Cancer Screening: P ap Smear 1990 Pneumococcal Vaccine: 50+ Ye ars (1 of 1 - PCV) 2019 Zoster Vaccines (1 of 2) 2019 Breast Cancer Screening 02/15/2019 02/15/2017 Colorectal Cancer Screening: Colonoscopy 12/02/2023 HIV Screening 12/02/2023 Hepatitis C Screening 12/02/2023 Social Influencers of Health Screening 12/02/2023 Depression Screening 02/18/2024 COVID-19 Vaccine (2 - 2024-2 6 season) 2024 05/16/2020 Influenza Vaccine (#1) 2024 HIB Vaccines Aged Out No longer eligi ble based on patient's age to complete this topic HPV Vaccines Aged Out No longer eligi ble based on patient's age to complete this topic Hepatitis A Vaccines Aged Out No long er eligible based on patient's age to complete this topic IPV Vaccines Aged Out No longer eligi ble based on patient's age to complete this topic MMR Vaccines Aged Out No longer eligi ble based on patient's age to complete this topic Meningococcal ACWY Vaccine Aged Out N o longer eligible based on patient's age to complete this topic Meningococcal B Vaccine Aged Out No l onger eligible based on patient's age to complete this topic RSV Immunization Patients Un stella 20 months Aged Out No longer eligible b ased on patient's age to complete this topic Varicella Vaccines Aged Out No longer eligible based on patient's age to complete this topic [place] [address] [address] [place] [id number] Advance Directives * Full Code - Default (Latest Code Status on File) Date Activated Date Inactivated Comments 03/19/2024 7:05 AM 03/19/2024 1:01 PM This is orde r is used when code status has not been discussed with the patient, or code status is otherwise unknown/unconfirmed To update the patient's code status, place a code status order. Do not modify or discontinue any currently active code status orders. Care Teams Electric Arc Furnace Operator Relationship Specialty Start Date End Date Daniella Abraham MD [address] [place] [address] , [address] [facility] [place] PCP - General 08/14/23
--- OUTSIDE RECORDS SUMMARY | 2024-11-07 18:14 | XMS_ITS | Encounter Summary ---
Author Organization [employer] Address [address] [facility] [address] [place] [address] Care Team Providers Care Electromedical Equipment Technician Name Role Phone Unavailable Primary Care Provider Unavailabl e Encounter Details Date Type Department Care Team (Latest Contact Info) Description 09/25/2018 Abstract [facility] CONVERSIONS Dental, Provider, DDS Social History Tobacco Use Types Packs/Day Years Used Date Smoking Tobacco: Never Assessed Comments Unknown Sex and Gender Information Value Date Recorded Sex Assigned at Female 12/17/2021 10:19 AM EDT Legal Sex Female 10:19 AM EDT Gender Identity Choose not to disclose 10:19 AM EDT Sexual Orientation Straight 12/17/2021 10 :19 AM EDT documented as of this encounter Plan of Treatment Not on file documented as of this encounter Visit Diagnoses Not on filedocumented in this encounter
--- OUTSIDE RECORDS SUMMARY | 2024-11-07 18:14 | XMS_ITS | Clinical Summary ---
Author Organization [employer] Address [address] [facility] [address] [place] [address] Care Team Providers Care Baseboard Heating Installer Name Role Phone Unavailable Primary Care Provider Unavailabl e Social History Tobacco Use Types Packs/Day Years Used Date Smoking Tobacco: Never Assessed Comments Unknown Sex and Gender Information Value Date Recorded Sex Assigned at Female 12/17/2021 10:19 AM EDT Legal Sex Female 10:19 AM EDT Gender Identity Choose not to disclose 10:19 AM EDT Sexual Orientation Straight 12/17/2021 10 :19 AM EDT Plan of Treatment Health Maintenance Due Date Last Done Comments CT Colonography 1969 Colonoscopy 1969 Colorectal Cancer Screening 1969 Depression Screening 1969 FIT DNA/Cologuard 1969 FIT 1969 FOBT 1969 Sigmoidoscopy 1969 Disability Screening 1969 Alcohol/Substance Use Screening 1981 Tobacco Screening 1981 DTaP/Tdap/Td Vaccines (1 - Tdap) 01/23/1988 Hepatitis B Vaccines (1 of 3 - 19+ 3-dose series) 01/23/1988 Pap Smear 1990 Cervical Cancer Screening 1999 HPV/Cotest 1999 Pneumococcal Vaccine: 50+ Ye ars (1 of 1 - PCV) 2019 Zoster Vaccines (1 of 2) 2019 Mammogram 02/15/2019 02/15/2017 COVID-19 Vaccine ( - 2023-2 5 season) 2024 Influenza Vaccine (#1) 2024 RSV Patients and Pa tients Aged 60 years or older (1 - 1-dose 75+ series) 01/23/2044 HIB Vaccines Aged Out No longer eligi [...] patient's age to complete this topic Meningococcal Vaccine Aged Out No dayna michaela eligible based on patient's age to complete this topic RSV under 20 months Aged Out No longe r eligible based on patient's age to complete this topic Rotavirus Vaccines Aged Out No longer eligible based on patient's age to complete this topic Procedures Procedure Name Priority Date/Time Associated Diagnosis Comments BI MAMMOGRAM SCREENING BILATERAL Routine 02/15/2017 9:05 AM EST from Last 3 Months or Most Recently Relevant to Health Maintenance Results * DIGITAL BILATERAL SCREEN 1 (02/15/2017 9:05 AM EST) Anatomical Region Laterality Modality Breast Bilateral Mammography 02/15/2017 9:05 AM EST Narrative 02/15/2017 9:07 AM EST Refer to the Notes tab for result details [facility] Procedure: DIGITAL BILATERAL SCREEN 1 Procedure Note Provider, MD Macrina - 05/11/2022 Refer to the Notes tab for result details [facility] Procedure: DIGITAL BILATERAL SCREEN 1 us Daniella Jones MD IMG BI PROCEDURES Final Result from Last 3 Months or Most Recently Relevant to Health Maintenance
[2024-11-07 18:16] VITALS: BP 156/70; PULSE 62; RESP 18; TEMP 36.4; O2SAT 99
== END 2024-11-07 18:16 | disposition home or self-care (01) ==
PROVIDERS: Emergency Provider Emergency Medicine; PCP Internal Medicine
DX: L02.11 Cutaneous abscess of neck (principal)
CPT/HCPCS: 99282; 99283

== ENCOUNTER 2024-12-22 16:49 | Outpatient (AMB) | payer OTHER, SELFPAY ==
[2024-12-22 16:51] VITALS: BP 122/66; PULSE 66; TEMP 36.4; O2SAT 98; BMI 26.5
--- NOTE | 2024-12-22 16:51 | MHC.PC.OV ---
Vital Signs 12/22/24 16:51 Height 5 ft 3 in Weight 149 lb 6 oz BMI 26.5 BP 122/66 Blood Pressure Location Lt brachial Position Sitting Pulse 66 Pulse Source Pulse Oximeter Temp 97.5 F Temp Source Temporal Artery Scan Pulse Oximetry (%) 98 Oxygen Delivery Method Room Air Intake Visit Reasons: annual exam Machine Bender Required: No Accompanied by: Spouse Allergies No Known Allergies Allergy (Verified 12/22/24 17:23) Medication List - Last Reconciled 12/22/24 by Daniella Abraham MD atorvastatin 10 mg PO BEDTIME cholecalciferol (vitamin D3) 25 mcg PO DAILY 90 days gabapentin 300 mg PO BEDTIME 20 days ibuprofen 800 mg PO TID omeprazole 40 mg PO DAILY 90 days Tobacco use date assessed: 12/22/24 Dental Screening Dental Screen Date: 12/22/24 Did you have a dental visit in the last 12 months?: Yes Did you have a dental problem in the last 6 months where you did not have access to dental care?: No Was dental information given to patient?: Patient has dentist HPI HPI Comments History of Present Illness Details The patient is a 54-year-old female presenting for physical exam. The patient reports taking gabapentin, which was prescribed for back pain, but she has been using it for hot and cold flashes associated with menopause. She states the gabapentin is not effective for her menopausal symptoms. Regarding other medications, the patient notes she is not receiving her prescriptions for atorvastatin and omeprazole. She is receiving ibuprofen. Past surgical history includes liposuction and tubal ligation. Family history is significant for her father who had asthma and is now ; her mother is alive. A mammogram is ordered for routine screening. Fasting labs will be performed to screen for diabetes and to monitor cholesterol. Prescriptions for omeprazole and vitamin D will be sent to the patient's pharmacy. Colonoscopy done 2020 and next colonoscopy should be 2030. Tdap vaccine done 2015 and next Tdap should be 2025. [facility] Medical History Biological false positive RPR test Left forearm pain Encounter for physical examination Hyperkalemia EDWAR (generalized anxiety disorder) Mild recurrent major depression Screen for STD (sexually transmitted disease) Mixed hyperlipidemia Chronic back pain GERD (gastroesophageal reflux disease) Insomnia Pure hypercholesterolemia Hypovitaminosis D Surgical History History of surgery History of tubal ligation Family History Father Asthma Mother No problems noted. Maternal Grandmother No problems noted. Maternal Grandfather No problems noted. Paternal Grandmother No problems noted. Paternal Grandfather No problems noted. Sister Diabetes Social History Household Members: Spouse Housing: Apartment Alcohol intake: never Patient Tobacco Use Status: Never used Tobacco e-Cigarette/Vaping Use: Never Used Second Hand Smoke Exposure: No service: No Current occupational status: employed Current occupational exposures/hazards: No Cognitive needs: No Hearing needs: No Vision needs: No Female Reproductive History Menstrual Age of Menarche: 12 Questionnaire PHQ-9 Over the last 2 weeks, how often have you been bothered by any of the following problems? 1. Little interest or pleasure in doing things: not at all 2. Feeling down, depressed, or hopeless: not at all 3. Trouble falling or staying asleep, or sleeping too much: not at all 4. Feeling tired or having little energy: not at all 5. Poor appetite or overeating: not at all 6. Feeling bad about yourself - or that you are a failure or have let yourself or your family down: not at all 7. Trouble concentrating on things, such as reading the newspaper or watching television: not at all 8. Moving or speaking so slowly that other people could have noticed. Or the opposite - being so fidgety or restless that you have been moving around a lot more than usual: not at all 9. Thoughts that you would be better off or of hurting yourself in some way: not at all Total score: 0 Depression Screening Interpretation: Negative Depression Screening Done: Yes 92709 - PHQ-9 Billing: Yes Source: Developed by Drs. Michael Ng, Whit Joyce, Catracho Lu and colleagues, with an educational anne from [employer]. Thrive Questionnaire Date Thrive assessed: 12/20/24 I am a: Patient What is your living situation today?: I have a steady place to live Within the past 12 months, did the food you bought not last and you didn't have the money to get more?: I choose not to answer this question Within the past 12 months, did you worry whether your food would run out before you got money to buy more?: I choose not to answer this question Do you have trouble paying for medicines?: I choose not to answer this question Do you have trouble getting transportation to medical appointments?: I choose not to answer this question Do you have trouble paying your heating and electricity bill?: I choose not to answer this question Do you have trouble taking care of your child, family member or friend?: I choose not to answer this question Do you have trouble with day-to-day activities such as bathing, preparing meals, shopping, managing finances, etc.?: I choose not to answer this question Are you currently unemployed and looking for a job?: I choose not to answer this question Are you interested in more education?: I choose not to answer this question Please select the resources that you would like help with: None Currently or been in a relationship where the following occur: I choose not to answer THRIVE Score: 0 AUDIT C Alcohol Use Questionnaire (AUDIT-C) 1. How often do you have a drink containing alcohol?: Never 3. How often do you have six or more drinks on one occasion?: Never Total Score: 0 Score Reviewed/Action Taken: No EDWAR-7 AMB Questionnaire EDWAR-7 Date EDWAR - 7 assessed: 12/22/24 Feeling nervous, anxious, or on edge: 0 = Not at all Not being able to stop or control worryin = Not at all Worrying too much about different things: 0 = Not at all Trouble relaxin = Not at all Being so restless that it is hard to sit still: 0 = Not at all Becoming easily annoyed or irritable: 0 = Not at all Feeling afraid as if something awful might happen: 0 = Not at all Total EDWAR-7 score (0-4 normal; 5-9 mild; 10-14 moderate; 15-21 severe): 0 Source: Developed by Drs. Michael Ng, Whit Joyce, Catracho Lu and colleagues, with an educational anne from [employer]. EDWAR-7 Assessment Billing EDWAR-7 Assessment Tool: EDWAR-7 Assessment 89139 Review of Systems Const All systems reviewed & are unremarkable except as noted in HPI and below Card Denies chest pain at rest, Denies chest pain with activity, Denies edema, Denies irregular heart rhythm, Denies claudication, Denies dyspnea, Denies dyspnea on exertion, Denies orthopnea, Denies paroxysmal nocturnal dyspnea and Denies slow heart rate Resp Denies cough, Denies dyspnea and Denies dyspnea on exertion GI Denies abdominal pain, Denies change in bowel habits, Denies excessive flatus, Denies nausea and Denies vomiting Physical exam (Primary Care) Vital Signs: Last Vital Signs Temp 97.5 F 12/22/24 16:51 Pulse 66 12/22/24 16:51 BP 122/66 12/22/24 16:51 Pulse Ox 98 12/22/24 16:51 Oxygen Delivery Method Room Air 12/22/24 16:51 BMI result Body Mass Index 26.5 Tobacco/Smoking Status: Tobacco use Status Tobacco use date assessed 12/22/24 12/22/24 16:55 Patient Tobacco Use Status Never used Tobacco 12/22/24 16:55 e-Cigarette/Vaping Use Never Used 12/22/24 16:55 PHQ-9: PHQ-9 Score PHQ-9: Total score 0 12/22/24 17:26 Depression Screening Interpretation: Negative Thrive Assessment: Date of Thrive Assessment Date Thrive assessed 12/20/24 12/22/24 16:55 Currently or been in a relationship where the following occur: I choose not to answer HENMT Head: Yes normal to inspection, Yes normocephalic and Yes atraumatic Ears: external ears normal Eyes General: appearance normal, both eyes and all related structures Eyelids: Yes eyelids normal Conjunctivae: conjunctivae normal Neck Neck: Yes normal visual inspection and Yes supple Resp Effort & Inspection: normal respiratory effort Auscultation: clear to auscultation bilaterally Cardio Jugular venous distension: no JVD Rate: regular rate Rhythm: regular rhythm Heart sounds: S1 normal heart sound present and S2 normal heart sound present GI Inspection: Yes normal to inspection Palpation (GI): Soft to palpation and nontender Auscultation: normal bowel sounds Skin General skin exam: no rashes or lesions noted Neuro General: no focal motor deficits Extrem General: Yes full ROM Psych Appearance: grossly normal Coding Level of Care Code Est Pt Prev Care 40-64y(28795) Diagnoses Encounter for physical examination Z00.00 Additional Codes EDWAR-7 Assessment Billing - EDWAR-7 Assessment Tool: EDWAR-7 Assessment 37561 ([id number]) PHQ-9 - 12175 - PHQ-9 Billing: Yes ([id number]) Time Spent (min) 31 Assessment & Plan Assessment & Plan (1) Encounter for physical examination: Code(s): Z00.00 - Encounter for general adult medical examination without abnormal findings Category: Medical Plan Plan 1. Encounter for general adult medical examination without abnormal findings Z00.00 Repeat in a year. Tdap will be done 2025. Colonoscopy done 2030. Mammogram ordered. Pap smear done 2023. Orders: Orders MM tomosynthesis screening BI Today Z12.31 - Encounter for screening mammogram for malignant neoplasm of breast Comprehensive [facility]. Panel Fast Today E78.00 - Pure hypercholesterolemia, unspecified Vitamin D 25-OH Total Today E55.9 - Vitamin D deficiency, unspecified Lipid Panel Today E78.5 - Hyperlipidemia, unspecified Medications: Changed From gabapentin 300 mg PO BEDTIME 20 days 20 caps 0RF G89.29 - Other chronic pain, M54.5 - Low back pain To gabapentin 300 mg PO BEDTIME 30 caps 3RF 30 days G89.29 - Other chronic pain, M54.5 - Low back pain Refilled cholecalciferol (vitamin D3) 25 mcg PO DAILY 90 caps 3RF 90 days ibuprofen 800 mg PO TID 90 tabs 3RF E55.9 - Vitamin D deficiency, unspecified atorvastatin 10 mg PO BEDTIME 90 tabs 1RF gabapentin 300 mg PO BEDTIME 20 days 20 caps 0RF G89.29 - Other chronic pain, M54.5 - Low back pain omeprazole 40 mg PO DAILY 90 caps 3RF 90 days
--- OUTSIDE RECORDS SUMMARY | 2024-12-22 19:07 | XMS_ITS | Encounter Summary ---
Author Organization [employer] Address [address] [facility] [address] [place] [address] Care Team Providers Care Associate Of Science In Nursing Name Role Phone Unavailable Primary Care Provider Unavailabl e Encounter Details Date Type Department Care Team (Latest Contact Info) Description 09/25/2018 Abstract [facility] CONVERSIONS Dental, Provider, DDS Social [...]
--- OUTSIDE RECORDS SUMMARY | 2024-12-22 19:07 | XMS_ITS | Clinical Summary ---
Author Organization [employer] Address [address] [facility] [address] [place] [address] Care Team Providers Care Binder Technician Name Role Phone Unavailable Primary Care [...]
== END 2024-12-22 17:34 | disposition home or self-care (01) ==
LOC: HO.HMCH 16:50
PROVIDERS: PCP Internal Medicine; Visit Provider Internal Medicine
DX: Z00.00 Encounter for general adult medical examination without abnormal findings (principal)

== ENCOUNTER → 2024-12-22 16:49 | Outpatient (BNVA) | payer OTHER, SELFPAY | PROVIDERS: PCP Internal Medicine; Visit Provider Internal Medicine | DX: Z00.00 Encounter for general adult medical examination without abnormal findings (principal); E78.00 Pure hypercholesterolemia, unspecified; E55.9 Vitamin D deficiency, unspecified; E78.5 Hyperlipidemia, unspecified; M54.50 Low back pain, unspecified; G89.29 Other chronic pain; Z79.899 Other long term (current) drug therapy | CPT/HCPCS: 96127; 99396 ==

== ENCOUNTER 2024-12-23 08:32 | Outpatient (REF) | payer OTHER, SELFPAY ==
--- OUTSIDE RECORDS SUMMARY | 2024-12-23 08:59 | XMS_ITS | Clinical Summary ---
Author Organization [employer] Address [address] [facility] [address] [place] [address] Care Team Providers Care Family Day Care Provider Name Role Phone Unavailable Primary Care Provider [...] this topic Meningococcal Vaccine Aged Out No adyna michaela eligible based on patient's age to [...]
--- OUTSIDE RECORDS SUMMARY | 2024-12-23 08:59 | XMS_ITS | Encounter Summary ---
Author Organization [employer] Address [address] [facility] [address] [place] [address] Care Team Providers Care Timber Framer Name Role Phone Unavailable Primary Care Provider Unavailabl e Encounter Details Date Type Department Care Team (Latest Contact Info) Description 09/25/2018 Abstract [facility] CONVERSIONS Dental, Provider, DDS Social History [...]
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
[2024-12-23 10:39] LABS: Alanine Aminotransferase 22 U/L (0-31); Albumin Level 4.6 g/dL (3.5-5.0); Alkaline Phosphatase 118 U/L (39-117); Anion Gap 12 (12-20); Aspartate Amino Transferase 50 U/L (5-31); Blood Urea Nitrogen 18 mg/dL (9-16); Calcium 9.7 mg/dL (8.4-10.2); Carbon Dioxide 29 mmol/L (22-29); Chloride 106 mmol/L (96-108); Cholesterol 173 mg/dL (<200); Estimated Glomerular Filt Rate > 60; HDL Cholesterol 45 mg/dL (>40); Potassium 4.5 mmol/L (3.3-5.1); Sodium 142 mmol/L (135-145); Total Protein 7.8 g/dL (6.5-8.0); Triglycerides 123 mg/dL (<150)
== END 2024-12-23 08:33 | disposition home or self-care (01) ==
LOC: HO.LAB 08:32
PROVIDERS: PCP Internal Medicine; Visit Provider Internal Medicine
DX: E78.00 Pure hypercholesterolemia, unspecified (principal); E55.9 Vitamin D deficiency, unspecified
CPT/HCPCS: 36415; 80053; 80061; 82306